=== PATIENT | male | born 1940 | race Caucasian/White ===

== ENCOUNTER 2017-12-13 16:19 | Emergency (ER) | payer MEDICARE, MEDICAID ==
[~2017-12-13] VITALS: Ht 172.7 cm; Wt 74.4 kg
--- OUTSIDE RECORDS SUMMARY | ~2017-12-13 | XMS | Clinical Summary ---
Demographics + + + | Address | [address] [place] [address] | | | [place] [address] | + + + | Home Phone | | + + + | Preferred Language | Unknown | + + + | Marital Status | Single | + + + | Scientology Affiliation | Unknown | + + + | Race | Unknown | + + + | Ethnic Group | Unknown | + + + Author + + + | Author | [facility] | | | and Angelana | + + + | Organization | [facility] | | | and Angelana | + + + | Address | Unknown | + + + | Phone | Unavailable | + + + Support + + + + + | Name | Relationship | Address | Phone | + + + + + | Shonna Syed | ECON | [address] | | | | | [place], [place] | | | | | [address] | | + + + + + Care Team Providers + +------+ + | Care Industrial Methods Consultant Name | Role | Phone | + +------+ + | Leonardo Abdi MD | PP | | + +------+ + Allergies Not on File Current Medications Not on file Active Problems Not on file Social History + +-------+ +--------+------+ | Tobacco [...] on file | | + + + Plan of Treatment + + + + + | Health Maintenance | Due Date | Last Done | Comments | + + + + + | Vaccine: | | | | | Dtap/Tdap/Td (1 - | 0 | | | | Tdap) | | | | + + + + + | Vaccine: Zoster (1 | | | | | of 2) | 1 | | | + + + + + | Vaccine: | | | | | Pneumococcal 65+ | 6 | | | | Low/Medium Risk (1 | | | | | of 2 - PCV13) | | | | + + + + + | Vaccine: Influenza | | | | | (#1) | 8 | | | + + + + + Results Not on filefrom Last 3 Months Insurance + +--------+ +--------+ +---------+ | Payer | Benefi | Subscriber | Type | Phone | Address | | | t Plan | ID | | | | | | / | | | | | | | Group | | | | | + +--------+ +--------+ +---------+ | MEDICARE | MEDICA | [id number] | Medica | [phone] | | | RE | | re | [phone] | | | | PART A | | | | | | | AND B | | | | | + +--------+ +--------+ +---------+ + +--------+ +--------+ + + | Guarantor Name | Accoun | Relation to | Date | Phone | Billing Address | | | t Type | Patient | of | | | | | | | | | | + +--------+ +--------+ + + | RK KEE | Person | Self [birth year] Home: | [address] [place] [address] | | | al/Fam | | 1941 | [phone] | [place] [address] | | | sol | | | 1970 | | + +--------+ +--------+ + +"
--- OUTSIDE RECORDS SUMMARY | ~2017-12-13 | XMS | Clinical Summary ---
Demographics + + + | Address | [address] [place] [address] | | | [place] [address] | + + + | Home Phone | | + + + | Preferred Language | Unknown | + + + | Marital Status | Single | + + + | Mormonism Affiliation | Unknown | + + + | Race | Unknown | + + + | Ethnic Group | Unknown | + + + Author + + + | Author | [facility] | | | and Angelana | + + + | Organization | [facility] | | | and Angelana [...] [place], [place] | | | | | [address] | | + + + + + Care Team Providers + +------+ + | Care Pantry Attendant Name | Role | Phone | + [...] +--------+ +---------+ | MEDICARE | MEDICA | [id number] | Medica | [phone] | | | RE | | [...] | Self | [birth year] | Home: | [address] [place] [address] | | | al/Fam | | 1941 | [phone] | [place] [address] | | | sol | | | 1970 | | + +--------+ +--------+ + +"
[~2017-12-13 16:19] MED LIST: BACLOFEN10 MG PO; GABAPENTIN100 MG PO; LIDODERM700 MG TD; MIRALAX17 GM PO; NORCO 5-325 TA1 EACH PO; NORVASC10 MG PO; NORVASC5 MG PO; TRELSTAR11.25 MG/2 IM; TYLENOL325 MG PO; VITAMIN D1000 UNI1 PO; XTANDI40 MG PO
[2017-12-13] MEDS ORDERED: LIDODERM1 EACH TD (17:38)
== END 2017-12-13 17:51 | disposition home or self-care (01) ==
LOC: ED 16:19
DX: S32.019A Unspecified fracture of first lumbar vertebra, initial encounter for closed fracture (principal); W01.198A Fall on same level from slipping, tripping and stumbling with subsequent striking against other object, initial encounter; Z79.899 Other long term (current) drug therapy; Z85.46 Personal history of malignant neoplasm of prostate
CPT/HCPCS: 72100; 99283

== ENCOUNTER 2017-12-14 11:59 | Observation (INO) | payer MEDICARE, MEDICAID ==
[~2017-12-14] VITALS: Ht 172.7 cm; Wt 74.5 kg
--- OUTSIDE RECORDS SUMMARY | ~2017-12-14 | XMS | Clinical Summary ---
Demographics + + + | Address | [address] [place] [address] | | | [place] [address] | + + + | Home Phone | | + + + | Preferred Language | Unknown | + + + | Marital Status | Single | + + + | Caodaism Affiliation | Unknown | + + + | Race | Unknown | + + + | Ethnic Group | Unknown | + + + Author + + + | Author | [facility] | | | and Angelana | + + + | Organization | [facility] | | | and Angelana [...] [place], [place] | | | | | [address] | | + + + + + Care Team Providers + +------+ + | Care Marble Finisher Name | Role | Phone | + [...] +--------+ +---------+ | MEDICARE | MEDICA | [id number] | Medica | [phone] | | | | RE | | [...] | Self | [birth year] | Home: | [address] [place] [address] | | | al/Fam | | 1941 | [phone] | [place] [address] | | | sol | | | 1970 | | + +--------+ +--------+ + +"
--- OUTSIDE RECORDS SUMMARY | ~2017-12-14 | XMS | Clinical Summary ---
Demographics + + + | Address | [address] [place] [address] | | | [place] [address] | + + + | Home Phone | | + + + | Preferred Language | Unknown | + + + | Marital Status | Single | + + + | Roman Catholic Affiliation | Unknown | + + + | Race | Unknown | + + + | Ethnic Group | Unknown | + + + Author + + + | Author | [facility] | | | and Angelana | + + + | Organization | [facility] | | | and Angelana | [...] [place], [place] | | | | | [address] | | + + + + + Care Team Providers + +------+ + | Care Coupon Clerk Name | Role | Phone | + [...] +--------+ +---------+ | MEDICARE | MEDICA | [id number] | Medica | [phone] | | | RE | | [...] | Self | [birth year] | Home: | [address] [place] [address] | | | al/Fam | | 1941 | [phone] | [place] [address] | | | sol | | | 1970 | | + +--------+ +--------+ + +"
--- OUTSIDE RECORDS SUMMARY | ~2017-12-14 | XMS | Clinical Summary ---
Demographics + + + | Address | [address] [place] [address] | | | [place] [address] | + + + | Home Phone [...] + + + | Author | [facility] | | | and Angelana | + + + | Organization | [facility] | | | and Angelana [...] [place], [place] | | | | | [address] | | + + + + + Care Team Providers + +------+ + | Care Brickmason Helper Name | Role | Phone | + [...] +--------+ +---------+ | MEDICARE | MEDICA | [id number] | Medica | [phone] | | | | RE | | [...] | Self | [birth year] | Home: | [address] [place] [address] | | | al/Fam | | 1941 | [phone] | [place] [address] | | | sol | | | 1970 | | + +--------+ +--------+ + +"
[~2017-12-14 11:59] MED LIST changes: +LIDODERM1 EACH TD
--- NOTE | 2017-12-14 15:26 | EKG ---
[facility] [address] [facility] [place], [place] [address] Signed Normal sinus rhythm Septal infarct , age undetermined Abnormal ECG No previous ECGs available Confirmed by WASHINGTON SHANE MD ([id number]) on 12/14/2017 3:26:42 PM Electronically Signed By: WASHINGTON SHANE MD 12/14/17 1526 PATIENT NAME: YAW EARL Electrocardiogram DATE OF : 40 PHYSICIAN: WASHINGTON SHANE MD REPORT #: [id number] REPORT IS CONFIDENTIAL AND NOT TO BE RELEASED WITHOUT AUTHORIZATION
--- NOTE | 2017-12-14 17:30 | NUR ---
PT ARRIVED TO UNIT VIA STRETCH FROM ER. PT ASSISTED TO BED, TOLERATED WELL, ASSESSED FOR POSITIONING AND PAIN. NEW GOWN AND ATTENDS APPLIED. SLIGHT REDDENING NOTED IN GROIN. PT PLACED ON TELE #5. NO ACUTE DISTRESS NOTED. FULL ASSESSMENT TO BE COMPLETED.
--- NOTE | 2017-12-14 17:55 | NUR ---
RN IN ROOM WITH PATIENT AT THIS TIME. THIS DISCIPLINARY HEARING OFFICER ASSISTED RN TO CHANGE PATIENT'S ATTENDS AND DRESS PATIENT IN CLEAN GOWN.
--- NOTE | 2017-12-14 18:23 | NUR ---
MED REC COMPLETE
--- NOTE | 2017-12-14 18:30 | NUR ---
PT ARRIVED TO UNIT AT 1730. A7O X3, RESPONDS APPROPRIATELY, VERBALIZATIONS CLEAR, SLIGHT ANXIETY AND FLAT AFFECT NOTED. PT ON TELE #5 AND SR NOTED, FIELD RESEARCH ASSOCIATE LESS THAN 3 SECONDS, PERIPHERAL PULSES PALPABLE +2, DENIES N/T IN EXTREMITIES, NO FACIAL DROOP, STRENGTH EQUAL BILATERALLY TO UPPER AND LOWER EXTREMITIES. RESPIRATIONS EVEN AND UNLABORED, LUNGS CLEAR THROUGHOUT ALL PRADO, NO COUGH NOTED. ABD SOFT, NONDISTENDED WITH ACTIVE BOWEL TONES X4, LAST BM 12/13/17, REGULAR DIET, DENIES NAUSEA. PT HAS DIFFICULTY WITH VOIDING AND NEEDS ASSISTANCE WITH URINAL. INTEGUMENTARY W/D/I. LAC IV SITE WNL AND SALINE LOCKED.
--- NOTE | 2017-12-14 19:47 | NUR ---
RECEIVED REPORT FROM DAY SHIFT RN. PATIENT IS RESTING IN BED. NO NEEDS NOTED. CALL LIGHT IN REACH.
--- NOTE | 2017-12-14 20:20 | NUR ---
PATIENT ASSESMENT COMPLETED. PATIENTS EVENING MEDICATIONS GIVEN PER ORDER. PATIENT COMPLAINS OF A HEADACHE. PATIENT GIVEN PRN TYLENOL PER ORDER. PATIENT REPOSITIONED IN BED. PATIENTS WATER REFILLED. PATIENT DENIES ANY FURTHER NEEDS AT THIS TIME. CALL LIGHT IN REACH.
--- NOTE | 2017-12-14 22:40 | NUR ---
PATIENT ASSISTED BY INTELLIGENCE SPECIALIST TO ROLL ONTO HIS SIDE. PATIENT DENIES ANY FURTHER NEEDS CALL LIGHT IN REACH.
--- NOTE | 2017-12-15 00:25 | NUR ---
PATIENTS URINAL EMPTIED. PATIENT REPOSITIONED. PATIENTS TELE BATTERY REPLACED WITH A CHARGED ONE. PATIENT DENIES ANY FURTHER NEEDS AT THIS TIME. CALL LIGHT IN REACH.
--- NOTE | 2017-12-15 01:45 | NUR ---
PATIENT IS RESTING IN BED WITH EYES CLSOED. BREATHING IS EVEN AND UNLABORED, RR 17. CALL LIGHT IN REACH.
--- NOTE | 2017-12-15 03:47 | NUR ---
PATIENT ALERTED STAFF THAT HE WAS AWAKE. PATIENTS VITALS TAKNE AND RECORDED. PATIENTS ATTEND CHANGED. PATIENT REPOSITIONED IN BED. PATIENT LAURO PRN TYLENOL FOR 3/10 PAIN IN HIS BACK AND COMPLAINTS OF A HEADACHE. PATIENT DENIES ANY FURTHER NEEDS CALL LIGHT IN REACH.
--- NOTE | 2017-12-15 05:19 | NUR ---
PATIENT RESTED WELL DURING THE LATER PART OF THE SHIFT. PATIENT IS ON A REGULAR DIET. PATIENT HAS AN ORDER FOR PT AND OT. PATIENT HAS GENERALIZED WAEAKNESS. PATIENT IS A 1-2 PA W/FWW BUT HAS NOT BEEN OUT OF BED THIS SHIFT. PATIENT IS SL AND IV FLUHES WELL. PATIENT USES URINAL IN BED. PATIENT IS ON TELE #5, HAS BEEN IN SR, HR IN THE 60-70. PATIENT IS AAOX3 W/A FLAT AFFECT. PATIENT USES CALL LIGHT APPROPRIATELY. PATIENT IS ABLE TO ASSIST WITH ATTEND CHANGES AND REPOSITIONING IN BED. PATIENT RECEIVED PRN TYLENOL X2 FOR PAIN IN HIS LOWER BACK AND A HEADACHE.
--- NOTE | 2017-12-15 05:56 | NUR ---
LAB IN THE ROOM. PATIENTS VITALS TAKEN WITH DEPUTY DIRECTOR OF PUBLIC WORKS AND RECORDED. PATIENT REPOSITIONED IN BED. PATIENT DENIES ANY FURTHER NEEDS AT THIS TIME. CALL LIGHT IN REACH.
--- NOTE | 2017-12-15 08:16 | NUR ---
PATIENT RESTING IN BED. PATIENT WOULD LIKE TO SLEEP A LITTLE BEFORE GETTING UP. CALL LIGHT IN REACH. RN NOTIFIED.
--- NOTE | 2017-12-15 09:00 | NUR ---
NEURO CHECK BENIGN, NO DEFICITS NOTED.
--- NOTE | 2017-12-15 09:10 | NUR ---
PT RESTING IN BED. ALERT AND ORIENTED. DENIES PAIN OR OTHER CONCERNS AT THIS TIME. LIDOCAINE PATCH REMOVED. CALL LIGHT WITHIN REACH.
--- NOTE | 2017-12-15 10:20 | NUR ---
PATIENT SITTING UP IN BED. HANDS AND FACE WASHED. ORAL CARE DONE. FRESH WATER GIVEN. PATIENT COMPLAINS ABOUT HEADACHE. RN NOTIFIED. CALL BUTTON IN REACH. NO OTHER NEEDS AT THIS TIME.
--- NOTE | 2017-12-15 12:00 | NUR ---
PT SITTING UP IN RECLINER EATING LUNCH. NEURO CHECK COMPLETED, BENIGN, NO DEFICITS NOTED. PT DENIES NEEDS OR CONCERNS AT THIS TIME. CALL LIGHT WITHIN REACH.
--- NOTE | 2017-12-15 12:30 | NUR ---
PATIENT UP TO THE BATROOM ONE PERSON ASSISTED WITH WALKER AND GATE BELT. PATIENT REFUSE SHOWER. ASSISTED PATIENT WITH BED BATH. PERICARE DONE BY PATIENT. LINENS WAS CHANGED. PATIENT BACK TO CHAIR. CALL LIGHT IN REACH. FRESH WATER. NO MORE NEEDS AT THIS TIME.
--- NOTE | 2017-12-15 14:00 | NUR ---
PT UP IN RECLINER, USES URINAL INDEPENDENTLY NEEDED. DENIES NEEDS OR CONCERNS AT THIS TIME. ASSESSMENT BENIGN. CALL LIGHT WITHIN REACH.
--- NOTE | 2017-12-15 16:15 | NUR ---
PT MEDICATED WITH PRN TYLENOL FOR C/O HEADACHE. SITTING UP IN RECLINER WITH CALL LIGHT WITHIN REACH. KARTHIK FURTHER NEEDS OR CONCERNS AT THIS TIME.
--- NOTE | 2017-12-15 19:10 | NUR ---
PT IN RECLINER WATCHING TV. CALL LIGHT WITHIN REACH.
--- NOTE | 2017-12-15 19:24 | NUR ---
REPORT RECEIVED FROM RIOS MEEHAN. PT STATES HE HAS HAD TODD AND BACK ACHES TODAY PT REPORTS CHRONIC TODD'S. PT STATES HE WOULD LIKE HIS TYLENOL AT 0000 WHEN IT IS DUE. CALL LIGHT AND H20 IN REACH AND PT DENIES FURHTER NEEDS AT THIS TIME.
--- NOTE | 2017-12-15 20:45 | NUR ---
In to administer HS medications. pt resting in chair, lidoderm patch applied to back. pt provided with fresh water and urinal emptied. call light in reach and pt denies furhter needs.
--- NOTE | 2017-12-15 22:20 | NUR ---
VITALS AND I&OS DONE AND CHARTED. HELPED HIM CHANGE HIS ATTENDS AND GOWN DUE TO SOME URINE ON IT WHEN HE WAS USING HIS URINAL. HELPED HIM TO BED FROM HIS CHAIR WITH HIS FWW. HELPED POSITION HIM WITH PILLOWS FOR COMFORT. BEDSIDE TABLE AND CALL LIGHT WITHIN REACH. PT NEEDS NOTHING ELSE AT THIS TIME.
--- NOTE | 2017-12-15 23:58 | NUR ---
pt resting in bed states he has 4/10 headache that is preventing him from getting any sleep. Tylenol administered po per pt request. urinal emptied and pt given fresh water. call light in reach.
--- NOTE | 2017-12-16 02:45 | NUR ---
PT ASSISTED UP IN BED AND ASSISTED INTO POSITION OF COMFORT WITH 2 PERSON ASSIST. PT HAS 2 TOWELS ROLLED UP INSTEAD OF PILLOW PER HIS REQUEST AND STATES HE IS COMFORTABLE. PT STATES PAIN IS TOLERABLE. ASSESSMENT COMPLETED, CALL LIGHT IN REACH. URINAL EMPTIED AND CALL LIGHT/H20 IN REACH. NEORO WAS PERFORMED WITH NO NEW DEFICITS.
--- NOTE | 2017-12-16 06:10 | NUR ---
PT RESTING SUPINE IN BED, ALERT TO DOOR BEING OPENED FOR WELLCHECK. PT STATES HE ONLY WAS BALE TO GET SOME BROKEN SLEEP OFF AND ON AND STATES HE HAS BEEN HAVING POOR SLEEP QUALITY AT HOME WELL. PT DENIES NEED FOR PAIN MEDACINE AND STATES HE FEELS COMFORTABLE. NO NEEDS VOICED. CALL LIGHT AND H20 IN REACH.
--- NOTE | 2017-12-16 06:38 | NUR ---
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 PT STILL HAS GENERALIZED WEAKNESS WITH NO NEW NEUROLOGICAL DEFACITS. 1-2PERSON ASSIST WITH FWW. PT REMAINS ON TELE #5. A/OX3, USES CALL LIGHT APPROPRIATLEY PT VOIDED QS CLEAR YELLOW URINE THIS SHIFT. LIDODERM PATCH TO SMALL OF BACK. AND PT RECEIVED 2 PO TYLENOL THIS SHIFT FOR REPORTS OF BACK ACHE AND HEADACHE.
--- NOTE | 2017-12-16 09:12 | NUR ---
PT RESTING IN BED, NO DISTRESS. PT STATES HE HAS CHRONIC BACK AND HEADACHE PAIN. PT HAD DIFFICULTY USING URINAL INDEPENDENTLY, USED WITH ASSIST. BRIEF WAS SATURATED, PROVIDED COMPLETE BED CHANGE, NEW BRIEF PLACED. PT IS GENERALLY WEAK AND NEEDED ASSIST TO ROLL IN BED. WEEDER EQUAL, ABLE TO FOLLOW COMMANDS, SMILE EQUAL, FLAT AFFECT. WILL CONTINUE TO MONITOR.
[2017-12-16] MEDS ORDERED: ASPIRIN EC81 MG PO (10:43)
--- NOTE | 2017-12-16 10:51 | NUR ---
WAS INFORMED THIS AM THAT THE PT WOULD NEED A FWW, RX GIVEN. TALKED WITH THE PT AND HE SAID TO GO AHEAD AND ORDER ONE FROM [facility]. FAXED CHART NOTES TO [facility] INCLUDING FACE SHEET, ER NOTES, H AND P, PROG NOTES, DC SUMMARY, DC PACKET, PT AND OT EVAL. RECIEVED A FAX CONFIRMATION. TALKED TO ZOFIA AT [facility] SHE STATED THEY WOULD BE ABLE TO DELIVER THE WALKER AFTER THE SCRAP YARD WORKER RETURNED FROM LUNCH.
--- NOTE | 2017-12-16 13:54 | NUR ---
PT FRIEND INQUIRED AT DISCHARGE IF PT WAS SAFE TO GO HOME TO LIVE ALONE. SPOKE WITH EMERGENCY MANAGEMENT CONSULTANT, PHYSICAL THERAPY HAS DISCHARGED/CLEARED PT TODAY. WIND TURBINE MECHANIC STATED THAT PT IS INDEPENDENT AND HAS BEEN CLEARED BY PHYSICAL THERAPY. PT IS TO FOLLOW UP WITH PHYSICIAN AND DO HOME PT IF ORDERED BY FOLLOW UP PROVIDER, RELAYED THAT INFORMATION TO PT AND FRIEND. ESCORTED PT TO CAR, PT USED WALKER TO TRANSFER. PT FRIEND STATED THAT IF PT CANNOT BE INDEPENDENT AT HOME SHE WILL CALL AN AMBULANCE AND RETURN PT TO THIS HOSPITAL SHE CANNOT LIFT HIM AND HAS BACK TROUBLE. REPORTED THIS INFORMATION TO CHARGE NURSE AND WIND TURBINE MECHANIC. PT WAS ABLE TO AMBULATE AND TRANSFER INDEPENDENTLY.
== END 2017-12-16 13:40 | disposition home or self-care (01) ==
LOC: ED 11:59 → MS 12:00
PROVIDERS: ADMIT Internal Medicine
DX: G45.9 Transient cerebral ischemic attack, unspecified (principal); C61 Malignant neoplasm of prostate; C79.9 Secondary malignant neoplasm of unspecified site; R29.810 Facial weakness; G81.94 Hemiplegia, unspecified affecting left nondominant side; S32.019A Unspecified fracture of first lumbar vertebra, initial encounter for closed fracture; W19.XXXA Unspecified fall, initial encounter; Z90.49 Acquired absence of other specified parts of digestive tract; Z90.79 Acquired absence of other genital organ(s); Z79.899 Other long term (current) drug therapy
CPT/HCPCS: 36415; 70450; 71045; 72131; 80048; 80053; 81001; 85025; 93005; 93010; 93880; 97116; 97163; 97165; 97530; 99285; G0378; G8978; G8979; G8980

== ENCOUNTER 2017-12-17 14:47 | Emergency (ER) | payer MEDICARE, MEDICAID ==
[~2017-12-17] VITALS: Ht 172.7 cm; Wt 74.5 kg
[~2017-12-17 14:47] MED LIST changes: +ASPIRIN EC81 MG PO
== END 2017-12-17 20:35 ==
LOC: ED 14:47
DX: S32.029A Unspecified fracture of second lumbar vertebra, initial encounter for closed fracture (principal); Z79.899 Other long term (current) drug therapy; X58.XXXA Exposure to other specified factors, initial encounter
CPT/HCPCS: 80053; 81001; 85025; 87088; 96360; 99285; J7030

== ENCOUNTER 2019-06-14 18:42 | Emergency (ER) | payer MEDICARE, OTHER ==
[~2019-06-14] VITALS: Ht 172.7 cm; Wt 77.6 kg
--- OUTSIDE RECORDS SUMMARY | 2019-06-14 18:46 | XMS ---
PreManage Notification: YAW EARL Security General Clerk Events No recent Security Events currently on file CRITERIA MET - Group Notification - [facility] - Has Care Guidelines CARE PROVIDERS LEO DISLA Nurse Practitioner: Family 12/15/2017-Current PHONE: [phone] Tito Luna Restrike Hammer Operator/Travel Guide 05/20/2019-Current PHONE: [phone] Tito Luna Primary Care 05/20/2019-Current PHONE: [phone] [place] has no Care Guidelines for this patient. Care History Medical/Surgical 12/15/2017 [facility] - Patient is currently established with [facility]. If patient is seen in the ED during business hours. Please contact CHWs at [facility]. Care Recommendation: This patient has had 5 or more Emergency Department visits in the last 12 months.\T\nbsp; Patient requires education on the scope and purpose of the ED as an acute care provider not a Primary Care Provider and should not be utilized for chronic conditions.\T\nbsp; These are guidelines and the provider should exercise clinical judgment when providing care. E.D. VISIT COUNT (12 MO.) 1 BERNADETTE Carvajal TOTAL 1 NOTE: Visits indicate total known visits. ED/UCC VISIT TRACKING (12 MO.) 06/14/2019 18:42 [facility] [place] TYPE: Emergency COMPLAINT: - BACK PAIN INPATIENT VISIT TRACKING (12 MO.) No inpatient visits to display in this time frame [email or web address]
== END 2019-06-14 21:39 | disposition home or self-care (01) ==
LOC: ED 18:42
DX: C79.51 Secondary malignant neoplasm of bone (principal); C61 Malignant neoplasm of prostate; Z79.899 Other long term (current) drug therapy
CPT/HCPCS: 80053; 81001; 85025; 99283

== ENCOUNTER 2019-08-01 12:28 | Emergency (ER) | payer MEDICARE, OTHER ==
[~2019-08-01] VITALS: Ht 172.7 cm; Wt 77.6 kg
--- OUTSIDE RECORDS SUMMARY | 2019-08-01 12:30 | XMS ---
PreManage Notification: YAW EARL Security Manager Loss Prevention Events No recent Security Events currently on file CRITERIA MET - Group Notification - [facility] - Has Care Guidelines CARE PROVIDERS LEO DISLA Nurse Practitioner: Family 12/15/2017-Current PHONE: [phone] Alisha Cain Door Serviceman/Broach Trouble Shooter 05/20/2019-Current PHONE: [phone] [place] has no Care Guidelines for this patient. Care History Medical/Surgical 06/15/2019 [facility] Spoke with patient regarding use of emergency room and advised of walk in clinic.\T\nbsp; Patient stated he has used the ER and the walk in clinic\T\ nbsp;before and knows how the system works.\T\nbsp; He has appointment with Dr. Arnold next week. 12/15/2017 [facility] - Patient is currently established with [facility]. If patient is seen in the ED during business hours. Please contact CHWs at [facility]. Care Recommendation: If this patient has had 5 or more Emergency Department visits in the last 12 months.\T\nbsp; Patient will require education on the scope and purpose of the ED as an acute care provider not a Primary Care Provider and should not be utilized for chronic conditions.\T\nbsp; These are guidelines and the provider should exercise clinical judgment when providing care. E.D. VISIT COUNT (12 MO.) 2 BERNADETTE Carvajal TOTAL 2 NOTE: Visits indicate total known visits. ED/UCC VISIT TRACKING (12 MO.) 08/01/2019 12:28 [facility] [place] TYPE: Emergency COMPLAINT: - FALL 06/14/2019 18:42 [facility] [place] TYPE: Emergency COMPLAINT: - BACK PAIN DIAGNOSES: - Secondary malignant neoplasm of bone - Diarrhea, unspecified - Other senior care (current) drug therapy - Malignant neoplasm of prostate - Low back pain INPATIENT VISIT TRACKING (12 MO.) No inpatient visits to display in this time frame [email or web address]
[2019-08-01] MEDS ORDERED: PREDNISONE5 MG PO (12:51)
[2019-08-01] MEDS ORDERED: ABIRATERONE AC250 MG PO (12:51)
[2019-08-01] MEDS ORDERED: AMLODIPINE BESYL5 MG PO (12:56)
== END 2019-08-01 15:40 | disposition home or self-care (01) ==
LOC: ED 12:28
DX: C61 Malignant neoplasm of prostate (principal); I10 Essential (primary) hypertension; Z79.899 Other long term (current) drug therapy
CPT/HCPCS: 80053; 81001; 83735; 85025; 99284

== ENCOUNTER 2019-10-08 07:45 | Emergency (ER) | payer MEDICARE, OTHER ==
[~2019-10-08] VITALS: Ht 172.7 cm; Wt 79.4 kg
[~2019-10-08 07:45] MED LIST changes: +ABIRATERONE AC250 MG PO; +AMLODIPINE BESYL5 MG PO; +PREDNISONE5 MG PO
--- OUTSIDE RECORDS SUMMARY | 2019-10-08 07:48 | XMS ---
PreManage Notification: YAW EARL Security Dean Of Faculty Events No recent Security Events currently on file CRITERIA MET - Group Notification - [facility] - Has Care Guidelines CARE PROVIDERS JUAN DISLA Nurse Practitioner: Family 12/15/2017-Current PHONE: [phone] Alisha Cain Quirk Sander/Site Manager 05/20/2019-Current PHONE: [phone] [place] has no Care Guidelines for this patient. Care History Medical/Surgical 08/02/2019 [facility] Patient has scheduled follow up with Juan Disla on 08/11/2019. 06/15/2019 [facility] Spoke with patient regarding use of emergency room and advised of walk in clinic.\T\nbsp; Patient stated he has used the ER and the walk in clinic\T\ nbsp;before and knows how the system works.\T\nbsp; He has appointment with Dr. Arnold next week. 12/15/2017 [facility] - Patient is currently established with [facility]. If patient is seen in the ED during business hours. Please contact CHWs at [facility]. Care Recommendation: If this patient has had [...] providing care. E.D. VISIT COUNT (12 MO.) 3 BERNADETTE Carvajal TOTAL 3 NOTE: Visits indicate total known visits. ED/C VISIT TRACKING (12 MO.) 2019 07:45 [facility] [place] TYPE: Emergency COMPLAINT: - FALL, KNEE PAIN 08/01/2019 12:28 [facility] [place] TYPE: Emergency COMPLAINT: - FALL DIAGNOSES: - Essential (primary) hypertension - Other custodial (current) drug therapy - Weakness - Malignant neoplasm of prostate 06/14/2019 18:42 [facility] [place] TYPE: Emergency COMPLAINT: - BACK PAIN DIAGNOSES: - Secondary malignant neoplasm of bone - Diarrhea, unspecified - Other buttermaker continuous churn (current) drug therapy - Malignant neoplasm of prostate - Low back pain INPATIENT VISIT TRACKING (12 MO.) No inpatient visits to display in this time frame [email or web address]
== END 2019-10-08 10:35 | disposition home or self-care (01) ==
LOC: ED 07:45
DX: S80.211A Abrasion, right knee, initial encounter (principal); I10 Essential (primary) hypertension; Z79.899 Other long term (current) drug therapy; W06.XXXA Fall from bed, initial encounter
CPT/HCPCS: 73560; 99283-25

== ENCOUNTER 2019-10-11 04:07 | Emergency (ER) | payer MEDICARE, OTHER ==
[~2019-10-11] VITALS: Ht 172.7 cm; Wt 77.1 kg
--- OUTSIDE RECORDS SUMMARY | 2019-10-11 04:10 | XMS ---
PreManage Notification: YAW EARL Security Seo Consultant Events No recent Security Events currently on file CRITERIA MET - Group Notification - [facility] - Has Care Guidelines - [facility] - 2 Visits in 30 Days CARE PROVIDERS JUAN DISLA Nurse Practitioner: Family 12/15/2017-Current PHONE: [phone] Alisha Cain Emergency Department/Jde Developer 05/20/2019-Current PHONE: [phone] [place] has no Care Guidelines for this patient. Care History Medical/Surgical 10/09/[address] [facility] Patient stated that he had fallen and could not get up.\T\nbsp; It scared him to the point of having to call EMS to get him to the ED.\T\nbsp; He will consider calling the Clinic to book a follow up with Juan Disla if need be. 08/02/[address] [facility] Patient has scheduled follow up with Juan Disla on 08/11/2019. 06/15/[address] [facility] Spoke with patient regarding use of emergency room and advised of walk in clinic.\T\nbsp; Patient stated he has used the ER and the walk in clinic\T\ nbsp;before and knows how the system works.\T\nbsp; He has appointment with Dr. Arnold next week. Jelani VISIT COUNT (12 MO.) 4 BERNADETTE Carvajal TOTAL 4 NOTE: Visits indicate total known visits. ED/UCC VISIT TRACKING (12 MO.) 10/11/2019 04:08 [facility] [place] TYPE: Emergency COMPLAINT: - FALL 2019 07:45 BERNADETTE Augustony Laci [facility] [place] TYPE: Emergency COMPLAINT: - FALL, KNEE PAIN 08/01/2019 12:28 [facility] [place] TYPE: Emergency COMPLAINT: - FALL DIAGNOSES: - Essential (primary) hypertension - Other custodial (current) drug therapy - Weakness - Malignant neoplasm of prostate 06/14/2019 18:42 BERNADETTE Augustony Laci [facility] [place] TYPE: Emergency COMPLAINT: - BACK PAIN DIAGNOSES: - Secondary malignant neoplasm of bone - Diarrhea, unspecified - Other custodial (current) drug therapy - Malignant neoplasm of prostate - Low back pain INPATIENT VISIT TRACKING (12 MO.) No inpatient visits to display in this time frame [email or web address]
== END 2019-10-11 05:47 | disposition home or self-care (01) ==
LOC: ED 04:07
DX: Z04.3 Encounter for examination and observation following other accident (principal); I10 Essential (primary) hypertension; Z79.899 Other long term (current) drug therapy; W18.30XA Fall on same level, unspecified, initial encounter
CPT/HCPCS: 80053; 81001; 85025

== ENCOUNTER 2019-10-31 12:42 | Emergency (ER) | payer MEDICARE, OTHER ==
[~2019-10-31] VITALS: Ht 172.7 cm; Wt 77.1 kg
--- OUTSIDE RECORDS SUMMARY | ~2019-10-31 | XMS | Encounter Summary ---
Demographics + + + | Address | [address] | | | [place] [address] | + + + | Home Phone | | + + + | Preferred Language | Unknown | + + + | Marital Status | Single | + + + | Yazdanism Affiliation | Unknown | + + + | Race | Unknown | + + + | Ethnic Group | Unknown | + + + Author + + + | Author | [facility] | | | and [place] | + + + | Organization | [facility] | | | and [place] | + + + | Address | Unknown | + + + | Phone | Unavailable | + + + Support + + + + + | Name | Relationship | Address | Phone | + + + + + | Shonna Ivannell | ECON | [address] | | | | | [place] | | | | | [address] | | + + + + + Care Team Providers + +------+ + | Care Procurement Accountant Name | Role | Phone | + +------+ + | Unknown, Doctor | PCP | | + +------+ + Reason for Visit + +--------+ + | Reason | Onset | Comments | | | Date | | + +--------+ + | Medication Refill | 01/02/ | | | | 2015 | | + +--------+ + Encounter Details +--------+--------+ + + + | Date | Type | Department | Care Team | Description | +--------+--------+ + + + | 01/02/ | Refill | [facility] | Rashard Rivera, | Medication Refill | | 2015 | | [facility] | [address] | | | | | [address]OG[address] CL[address] | [facility] [place], | | | | | [address] | [place] [address] | | | | | [place] [address] | [phone] | | | | | [phone] | | | +--------+--------+ + + + Social History + +-------+ +--------+------+ | Tobacco Use | Types | Packs/Day | Years | Date | | | | | Used | | + +-------+ +--------+------+ | Never Assessed | | | | | + +-------+ +--------+------+ + + + | Sex Assigned at | Date Recorded | | | | + + + | Not on file | | + + + documented as of this encounter Plan of Treatment Not on filedocumented as of this encounter Visit Diagnoses Not on filedocumented in this encounter"
--- OUTSIDE RECORDS SUMMARY | ~2019-10-31 | XMS | Clinical Summary ---
Demographics + + + | Address | [address] | | | [place] [address] | + + + | Home Phone | | + + + | Preferred Language | Unknown | + + + | Marital Status | Single | + + + | Spiritism Affiliation | Unknown | + + + | Race | Unknown | + + + | Ethnic Group | Unknown | + + + Author + + + | Author | [facility] | | | and [place] | + + + | Organization | [facility] | | | and [place] | + + + | Address | Unknown | + + + | Phone | Unavailable | + + + Support + + + + + | Name | Relationship | Address | Phone | + + + + + | Shonna Syed | ECON | [address] | | | | | [place] | | | | | [address] | | + + + + + Care Team Providers + +------+ + | Care Lining Cutter Name | Role | Phone | + +------+ + | Juan Verde NP | PCP | | + +------+ + Allergies No Known Allergies Medications + + + +---------+------+------+-------+ | Medication | Sig | Dispensed | Refills | Star | End | Statu | | | | | | t | Date | s | | | | | | Date | | | + + + +---------+------+------+-------+ | RA ASPIRIN EC 81 | Take 81 mg by mouth | | 0 | 08/3 | | Activ | | MG EC tablet | Daily. | | | 0/20 | | e | | | | | | 18 | | | + + + +---------+------+------+-------+ | amLODIPine | Take 5 mg by mouth | | 0 | 04/1 | | Activ | | (NORVASC) 5 mg | Daily. | | | 8/20 | | e | | tablet | | | | 19 | | | + + + +---------+------+------+-------+ | | Take 1-2 tablets by | 30 | 0 | 06/0 | | Activ | | HYDROcodone-acetamin | mouth every 4 hours | tablet | | 6/20 | | e | | ophen (NORCO) 5-325 | as needed for Pain. | | | 19 | | | | mg per tablet | | | | | | | + + + +---------+------+------+-------+ Active Problems Not on file Social History + +-------+ +--------+------+ | Tobacco Use | Types | Packs/Day | Years | Date | | | | | Used | | + +-------+ +--------+------+ | Never Smoker | | | | | + +-------+ +--------+------+ + +---+---+---+ | Smokeless Tobacco: | | | | | Never Used | | | | + +---+---+---+ + + +---------+ + | Alcohol Use | Drinks/Week | oz/Week | Comments | + + +---------+ + | Not Currently | | | | + + +---------+ + + + + | Sex Assigned at | Date Recorded | | | | + + + | Not on file | | + + + Last Filed Vital Signs + + + + + | Vital Sign | Reading | Time Taken | Comments | + + + + + | Blood Pressure | 147/74 | 09/22/2018 7:45 AM | | | | | PDT | | + + + + + | Pulse | 70 | 09/22/2018 7:45 AM | | | | | PDT | | + + + + + | Temperature | 35.8 C (96.4 F) | 09/22/2018 7:45 AM | | | | | PDT | | + + + + + | Respiratory Rate | 16 | 09/22/2018 7:45 AM | | | | | PDT | | + + + + + | Oxygen Saturation | 95% | 09/22/2018 7:45 AM | | | | | PDT | | + + + + + | Inhaled Oxygen | - | - | | | Concentration | | | | + + + + + | Weight | 79.2 kg (174 lb 9.7 | 09/21/2018 7:04 AM | | | | oz) | PDT | | + + + + + | Height | 170.2 cm (5' 7") | 09/21/2018 7:04 AM | | | | | PDT | | + + + + + | Body Mass Index | 27.35 | 09/21/2018 7:04 AM | | | | | PDT | | + + + + + Plan of Treatment + + + + + | Health Maintenance | Due Date | Last | Comments | | | | Done | | + + + + + | Vaccine: | | | | | Dtap/Tdap/Td (1 - | 0 | | | | Tdap) | | | | + + + + + | Vaccine: Zoster (1 | | | | | of 2) | 1 | | | + + + + + | Vaccine: | | | | | Pneumococcal 65+ (1 | 6 | | | | of 1 - PPSV23) | | | | + + + + + | Adult Annual | | | | | Wellness Visit | 0 | | | + + + + + | Vaccine: Influenza | | 01/22/20 | | | (#1) | 0 | 17 | | + + + + + Results Not on filefrom Last 3 Months Insurance + +--------+ +--------+ +---------+--------+ | Payer | Benefi | Subscriber | Effect | Phone | Address | Type | | | t Plan | ID | stephanie | | | | | | / | | Dates | | | | | | Group | | | | | | + +--------+ +--------+ +---------+--------+ | MEDICARE | MEDICA | [id number] | 09/18/19 | [phone] | | Medica | | | RE | | 06-Pre | 5 | | re | | | PART A | | sent | | | | | | AND B | | | | | | + +--------+ +--------+ +---------+--------+ | [employer]AN | MODA | [id number] | 09/21/19 | [phone] | | Medica | | MEDICAID HMO | HEALTH | | 19-Pre | 1 | | id | | | MDCD | | sent | | | | | | HMO [place] | | | | | | + +--------+ +--------+ +---------+--------+ + +--------+ +--------+ + + | Guarantor Name | Accoun | Relation to | Date | Phone | Billing Address | | | t Type | Patient | of | | | | | | | | | | + +--------+ +--------+ + + | Rk Kee | Person | Self | [birth year] | [address] | | | al/[place] | | 1941 | [phone] | [address] | | | sol | | | [address] (Home) | [place] [address] | + +--------+ +--------+ + + Advance Directives + + + + + | Type | Date Recorded | Patient | Explanation | | | | Commissions Analyst | | + + + + + | Power of | | | | | Hydroelectric Plant Electrical Engineer | | | | + + + + + | Advance | 09/21/2018 6:49 | | | | Directive | AM | | | + + + + + + + + + + | Code Status | Date | Date | Comments | | | Activated | Inactivated | | + + + + + | Full Code | 09/21/2018 | 09/22/2018 | | | | 11:42 AM | 1:17 PM | | + + + + +
--- OUTSIDE RECORDS SUMMARY | ~2019-10-31 | XMS | Encounter Summary ---
Demographics + + + | Address | [address] | | | [place] [address] | + + + | Home Phone | | + + + | Preferred Language | Unknown | + + + | Marital Status | Single | + + + | Restorationism Affiliation | Unknown | + + + | Race | Unknown | + + + | Ethnic Group | Unknown | + + + Author + + + | Author | [facility] | | | and [place] | + + + | Organization | [facility] | | | [...] [place] | | | | | [address] | | + + + + + Care Team Providers + +------+ + | Care Cast Iron Dipper Name | Role | Phone | + [...] + + | 07/07/ | Refill | [facility] | [place], | Medication Refill | | 2016 | | [facility] | Maximus Julian MD [address] | | | | | [address] CL[address] | [facility] | | | | | [facility] | [place] [address] | | | | | [place] [address] | [phone] | | | | | [phone] | | | +--------+--------+ + + + [...]
--- OUTSIDE RECORDS SUMMARY | ~2019-10-31 | XMS | Encounter Summary ---
Demographics + + + | Address | [address] | | | [place] [address] | + + + | Home Phone | | + + + | Preferred Language | Unknown | + + + | Marital Status | Single | + + + | Yarsanism Affiliation | Unknown | + + + | Race | Unknown | + + + | Ethnic Group | Unknown | + + + Author + + + | Author | [facility] | | | and [place] | + + + | Organization | [facility] | | | [...] [place] | | | | | [address] | | + + + + + Care Team Providers + +------+ + | Care Hot Top Liner Name | Role | Phone | + [...] | | | [address] | [place] [address] | | | | | [place] [address] | | | | | | [phone] | | | +--------+ + + + [...]
--- OUTSIDE RECORDS SUMMARY | ~2019-10-31 | XMS | Encounter Summary ---
Demographics + + + | Address | [address] | | | [place] [address] | + + + | Home Phone | | + + + | Preferred Language | Unknown | + + + | Marital Status | Single | + + + | Adventism Affiliation | Unknown | + + + [...] [place] | | | | | [address] | | + + + + + Care Team Providers + +------+ + | Care Addiction Psychiatrist Name | Role | Phone | + [...] | | | [address] | [place] [address] | | | | | [place] [address] | | | | | | [phone] | | | +--------+ + + + [...]
--- OUTSIDE RECORDS SUMMARY | ~2019-10-31 | XMS | Encounter Summary ---
Demographics + + + | Address | [address] | | | [place] [address] | + + + | Home Phone | | + + + | Preferred Language | Unknown | + + + | Marital Status | Single | + + + | Faith Affiliation | Unknown | + + + | Race | Unknown | + + + | Ethnic Group | Unknown | + + + Author + + + | Author | [facility] | | | and [place] | + + + | Organization | [facility] | | | [...] [place] | | | | | [address] | | + + + + + Care Team Providers + +------+ + | Care Quality Control Inspector Name | Role | Phone | + [...] | | | | | | | OR EXC | | | | | | | PAROTD,LAT | | | | | | | LOBE,DISSECT | | | | | | | 5TH NERV | | | | | | | OR EXC SKIN | | | | | [...] | | | | | | right muslim | | | | | | | lesion | | | +--------+--------+ + + + + Encounter Details +--------+ + + + + | Date | Type | Department | Care Team | Description | +--------+ + + + + | 06/05/ | Hospital | [facility] | Wesley Gruber Sigrid, | 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 [...] Gruber MD - 09/21/2018 10:[address] [facility] [address] [facility] [address] OPERATIVE REPORT WESLEY GRUBER MD Patient: RK EARL Admitting: WESLEY Matta ALLYN MR #: [id number] LOC: PT TYPE: Adm Date: 09/21/2018 : 1940 DATE: 09/21/2018 PREOPERATIVE DIAGNOSES: 1. Right parotid mass. 2. Right muslim skin lesion. POSTOPERATIVE DIAGNOSES: 1. Right parotid mass. 2. Right muslim skin lesion. PROCEDURE: 1. Right superficial parotidectomy with facial nerve dissection. 2. Wide excision of a right facial lesion. SURGEON: Wesley Gruber MD RAMP SERVICE MAN: Gabriel Ortiz MD. ANESTHESIA: General orotracheal, Jimy [...] have a pigmented lesion on the right muslim, measures about 15 mm, very suspicious for [...] place with a 3-0 silk. The right muslim lesion was then addressed. It was a [...] then awakened, extubated and transported to the [facility] room in good condition. COMPLICATIONS: None. BLOOD LOSS: About 50 mL. SPECIMEN: To pathology: 1. Right parotid superficial lobe. 2. Right muslim lesion. DRAIN: Flat Julian. WESLEY GRUBER MD Dictated by WESLEY GRUBER MD 09/21/2018 10:37:29 Transcribed on 09/21/2018 13:04:49 by in job# [id number] Confirmation #: [id number] cc: ELENA ABDI MD rief Op Note - Wesley Gruber MD - 09/21/2018 10:25 AM PDTFormatting of this note mo ht be different from the original. BRIEF OPERATIVE NOTE [facility] Pt. Name/Age/: Rk Bourne y.o. 1940 Med. Record Number: [id number] Date of admission: 09/21/2018 Date of Operation/Procedure: 09/21/2018 Preoperative Diagnosis: * No pre-op diagnosis entered * Postoperative Diagnosis: * Neck mass [R22.1] Surgeon: Wesley Gruber MD Museum Guide: None Anesthesia Provider(s): Anesthesiologist: Jimy Viramontes MD Anesthesia Type: General Procedure(s): Right superficial parotidectomy with facial nerve dissection, excision right muslim lesion Operative Findings: Wound Closure: Primary closure [...] MD 09/21 0930 Pathology B : Right muslim lesion Tissue SPECIMEN TO PATHOLOGY Wesley Gruber [...] Wesley Gruber MD - 09/21/2018 8:[facility] INTERIM HISTORY AND [...] signed by: Wesley Gruber, 09/21/2018 8:12 [facility] documented in this e ncounter Plan [...] A RIGHT PAROTID GLAND SPECIMEN(S): B RIGHT JEW | [place] [facility] | | SPECIMEN SOURCE: A. RIGHT PAROTID GLAND B. RIGHT JEW CLINICAL | INCYTE | | HISTORY: R22.1 (neck mass). Right superficial parotidectomy with | | | facial nerve dissection, excision right muslim mass. FINAL | | | PATHOLOGIC DIAGNOSIS: A. 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 - Focal chronic stromal | | | inflammation. - Incidental reactive lymphoid tissue (lymph nodes). | | | B. Skin, right muslim, excision: - Malignant melanoma, arising | | | in melanoma in situ. - Procedure: Excision. - | | | Tumor site: Right muslim. - Clinical size: Not available. | | [...] on 09-23-18 at 15:40. As part of [facility]' | | | Quality Improvement Program, this case was reviewed by another member | | | of our pathology staff. JVR:[facility]:C1NR MICROSCOPIC | | | EXAMINATION: Histologic [...] concern, | | | supporting the diagnosis. JVR:[facility] GROSS DESCRIPTION: Two | | | [...] | | | discrete lesions are identified. White Metal Caster sections are | | | submitted as follows: (A1) Lesion to blue inked resection margin | | | (A2) Lesion to uninvolved parenchyma (A3) Lesion (A4-A6) | | | Uninvolved parenchyma B. The specimen, labeled "DB, right muslim | | | lesion," is received in [...] performance | | | characteristics determined by [facility]. It has not been | | | cleared or approved by the U.S. Food and Drug Administration. The | | | FDA has determined that such clearance or approval is not necessary. | | | This test is used for clinical purposes. It should not be regarded | | | as investigational or for research. [facility] is certified | | | under the Clinical Laboratory Improvement Amendments of 1988 (CLIA) | | | as qualified to perform high complexity clinical laboratory testing. | | | PERFORMING LABORATORY: The technical component was performed by | | | [facility], [address] [place] [address] (Medical | | | Director: Bella Mendoza MD; CLIA# [id number]). Professional | | | interpretation was performed by [facility], [place] | | | [facility], [address] [place] [address] | | | [id number] (Setter Out: Ivan Velazquez M.D.). Diagnostician: | | | [...] | | | | | | use Cecilton 10/325 if ordered. If | | | [...] | | | | | | | [id number] use of at least | | | [...]
--- OUTSIDE RECORDS SUMMARY | ~2019-10-31 | XMS | Encounter Summary ---
Demographics + + + | Address | [address] | | | [place] [address] | + + + | Home Phone | | + + + | Preferred Language | Unknown | + + + | Marital Status | Single | + + + | Holiness Affiliation | Unknown | + + + | Race | Unknown | + + + | Ethnic Group | Unknown | + + + Author + + + | Author | [facility] | | | and [place] | + + + | Organization | [facility] | | | [...] [place] | | | | | [address] | | + + + + + Care Team Providers + +------+ + | Care Watch Dial Maker Name | Role | Phone | [...] | | | | | | | TN EXC | | | | | | | PAROTD,LAT | | | | | | | LOBE,DISSECT | | | | | | | 5TH NERV | | | | | | | TN EXC SKIN | | | | | [...] | | | | | | right baptist | | | | | | | [...] | | | | | [address] | [place] | | | | | [place] | [address] | | | | | [address] | | | | | | [phone] | | | +--------+ + + + [...] excision | | | | | right baptist lesion | | | | | (Right [...] +----+---+ + + | | 0 | Aiken | | | | 8 | 43-degrees | | | | 5 | | | | | 1 | | | +----+---+ + + | | 0 | First | | | | 8 | Inc/Proc St | | | | 5 | | | | | 3 | | | +----+---+ + + | | 1 | Aiken off | | | | 0 | [...] 09/22/18929 by | | carol | Forearm; afpx-lic-buiund catheter | Meron Bryan RN | Radha [...] EVALUATION Rk Kee 77 y.o. male 1940 [id number] Procedure(s) Right superficial parotidectomy with facial nerve dissection, excision right baptist lesion (Right Neck) Cooperates? Yes Mental Status [...] signed by Jimy Viramontes MD 09/21/2018 14:14 [facility] signed by Jimy Viramontes MD at 2018 [...] EVALUATION Rk Kee 77 y.o. male 1940 [id number] Procedure(s): Right superficial parotidectomy with facial nerve dissection, excision right baptist lesion (Right Neck) Medical,anesthesia, drug, allergy histories [...] | Procedure Note | + + | Jimy Viramontes MD - 09/21/2018 8:54 AM PDT [...]
--- OUTSIDE RECORDS SUMMARY | ~2019-10-31 | XMS | Encounter Summary ---
Demographics + + + | Address | [address] | | | [place] [address] | + + + | Home Phone | | + + + | Preferred Language | Unknown | + + + | Marital Status | Single | + + + | Anabaptist Affiliation | Unknown | + + + | Race | Unknown | + + + | Ethnic Group | Unknown | + + + Author + + + | Author | [facility] | | | and [place] | + + + | Organization | [facility] | | | [...] [place] | | | | | [id number] | | + + + + + Care Team Providers + +------+ + | Care Vp Packaging Name | Role | Phone | + [...] | | | | | | | [place] EXC | | | | | | | PAROTD,LAT | | | | | | | LOBE,DISSECT | | | | | | | 5TH NERV | | | | | | | [place] EXC SKIN | | | | | [...] | | | | | | right baptism | | | | | | | [...] with | | | | [address] | [address] [place], | facial nerve | | | | [place], [place] | [place] [address] | dissection, excision | | | | [id number] | [phone] | right baptism lesion | | | | [phone] | | | +--------+---------+ + + + [...] has mild/mod pain to surgical site, prn [place] 1 tab given w/ good relief noted. [...] Gruber MD - 09/21/2018 10:37 AM PDT [facility] [address] [facility] [id number] OPERATIVE REPORT WESLEY GRUBER MD Patient: RK EARL Admitting: WESLEY Matta ALLYN MR #: [id number] LOC: PT TYPE: Adm Date: 09/21/2018 : 1940 DATE: 09/21/2018 PREOPERATIVE DIAGNOSES: 1. Right parotid mass. 2. Right baptism skin lesion. POSTOPERATIVE DIAGNOSES: 1. Right parotid mass. 2. Right baptism skin lesion. PROCEDURE: 1. Right superficial parotidectomy with facial nerve dissection. 2. Wide excision of a right facial lesion. SURGEON: Wesley Gruber MD INDEPENDENT LIVING ADVISOR: Gabriel Ortiz MD. ANESTHESIA: General orotracheal, Jimy [...] have a pigmented lesion on the right baptism, measures about 15 mm, very suspicious for [...] place with a 3-0 silk. The right baptism lesion was then addressed. It was a [...] then awakened, extubated and transported to the [facility] room in good condition. COMPLICATIONS: None. BLOOD LOSS: About 50 mL. SPECIMEN: To pathology: 1. Right parotid superficial lobe. 2. Right baptism lesion. DRAIN: Flat Julian. WESLEY GRUBER MD Dictated by WESLEY GRUBER MD 09/21/2018 10:37:29 Transcribed on 09/21/2018 13:04:49 by in job# [id number] Confirmation #: [id number] cc: ELENA ABDI MD rief Op Note - Wesley Gruber MD - 09/21/2018 10:25 AM PDTFormatting of this note mo ht be different from the original. BRIEF OPERATIVE NOTE [facility] Pt. Name/Age/: Rk Bour[age] y.o. 1940 Med. Record Number: [id number] Date of admission: 09/21/2018 Date of Operation/Procedure: 09/21/2018 Preoperative Diagnosis: * No pre-op diagnosis entered * Postoperative Diagnosis: * Neck mass [R22.1] Surgeon: Wesley Gruber MD Logging Engineer: None Anesthesia Provider(s): Anesthesiologist: Jimy Viramontes MD Anesthesia Type: General Procedure(s): Right superficial parotidectomy with facial nerve dissection, excision right baptism lesion Operative Findings: Wound Closure: Primary closure [...] MD 09/21 0930 Pathology B : Right baptism lesion Tissue SPECIMEN TO PATHOLOGY Wesley Gruber [...] Wesley Gruber MD - 09/21/2018 8:12 AM [facility] [...] signed by: Wesley Gruber, 09/21/2018 8:12 [facility] documented in this e ncounter Plan of [...] A RIGHT PAROTID GLAND SPECIMEN(S): B RIGHT MORMONISM | [place] [facility] | | SPECIMEN SOURCE: A. RIGHT PAROTID GLAND B. RIGHT MORMONISM CLINICAL | INCYTE | | HISTORY: R22.1 (neck mass). Right superficial parotidectomy with | | | facial nerve dissection, excision right baptism mass. FINAL | | | PATHOLOGIC DIAGNOSIS: A. 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 - Focal chronic stromal | | | inflammation. - Incidental reactive lymphoid tissue (lymph nodes). | | | B. Skin, right baptism, excision: - Malignant melanoma, arising | | | in melanoma in situ. - Procedure: Excision. - | | | Tumor site: Right baptism. - Clinical size: Not available. | | [...] on 09-23-18 at 15:40. As part of [employer]' | | | Quality Improvement Program, this case was reviewed by another member | | | of our pathology staff. JVR:[facility]:C1NR MICROSCOPIC | | | EXAMINATION: Histologic [...] concern, | | | supporting the diagnosis. JVR:[facility] GROSS DESCRIPTION: Two | | | [...] | | | discrete lesions are identified. Tab Cutting Machine Operator sections are | | | submitted as follows: (A1) Lesion to blue inked resection margin | | | (A2) Lesion to uninvolved parenchyma (A3) Lesion (A4-A6) | | | Uninvolved parenchyma B. The specimen, labeled "DB, right baptism | | | lesion," is received in [...] performance | | | characteristics determined by [employer]. It has not been | | | cleared or approved by the U.S. Food and Drug Administration. The | | | FDA has determined that such clearance or approval is not necessary. | | | This test is used for clinical purposes. It should not be regarded | | | as investigational or for research. [employer] is certified | | | under the Clinical Laboratory Improvement Amendments of 1988 (CLIA) | | | as qualified to perform high complexity clinical laboratory testing. | | | PERFORMING LABORATORY: The technical component was performed by | | | [employer], [address] [place] [id number] (Medical | | | Director: Bella Mendoza MD; CLIA# [id number]). Professional | | | interpretation was performed by [employer] [place] | | | [facility], [address] [place] [address] | | | [id number] (Resort Desk Clerk: Ivan Velazquez M.D.). Diagnostician: | | | [...] | | | | | | use [place] 10/325 if ordered. If | | | [...] | | | | | | | [id number]-sltth use of at least | | | [...]
--- OUTSIDE RECORDS SUMMARY | 2019-10-31 12:46 | XMS ---
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 Care History Medical/Surgical 10/09/2019 [facility] Patient stated that he had fallen and could not get up.\T\nbsp; It scared him to the point of having to call EMS to get him to the ED.\T\nbsp; He will consider calling the Clinic to book a follow up with Juan Disla if need be. 08/02/2019 [facility] Patient has scheduled follow up with Juan Disla on 08/11/2019. 06/15/2019 [facility] Spoke with patient regarding use of emergency room and advised of walk in clinic.\T\nbsp; Patient stated he has used the ER and the walk in clinic\T\ nbsp;before and knows how the system works.\T\nbsp; He has appointment with Dr. Arnold next week. Jealni VISIT COUNT (12 MO.) 5 [facility]NA[facility]TE Carvajal TOTAL 5 NOTE: Visits indicate total known visits. ED/UCC VISIT TRACKING (12 MO.) 10/31/2019 12:43 [facility] [place] TYPE: Emergency COMPLAINT: - WEAKNESS 10/11/2019 04:08 [facility] [place] TYPE: Emergency COMPLAINT: - FALL DIAGNOSES: - Fall on same level, unspecified, initial encounter - Other fdc (current) drug therapy - Encounter for examination and observation following other acc - Essential (primary) hypertension 2019 07:45 [facility] [place] TYPE: Emergency COMPLAINT: - FALL, KNEE PAIN DIAGNOSES: - Abrasion, right knee, initial encounter - Pain in right knee - Essential (primary) hypertension - Other side guider (current) drug therapy - Fall from bed, initial encounter 08/01/2019 12:28 [facility] [place] TYPE: Emergency COMPLAINT: - FALL DIAGNOSES: - Essential (primary) hypertension - Other fdc (current) drug therapy - Weakness - Malignant neoplasm of prostate 06/14/2019 18:[address] [facility] [place] TYPE: Emergency COMPLAINT: - BACK PAIN DIAGNOSES: - Secondary malignant neoplasm of bone - Diarrhea, unspecified - Other side guider (current) drug therapy - Malignant neoplasm of prostate - Low back pain INPATIENT VISIT TRACKING (12 MO.) No inpatient visits to display in this time frame [email or web address]
[2019-11-01] MEDS ORDERED: ACETAMINOPHEN500 MG PO (06:22)
--- NOTE | 2019-11-01 21:12 | EKG ---
[facility] [address] [facility] [place] [address] Signed Normal sinus rhythm Moderate voltage criteria for LVH, may be normal variant Borderline ECG When compared with ECG of 14-DEC-2017 12:26, Criteria for Septal infarct are no longer present Confirmed by JOSEF HDEZ DO ([id number]) on 11/01/2019 9:12:38 PM Electronically Signed By: JOSEF HDEZ DO 11/01/192111 PATIENT NAME: YAW EARL Electrocardiogram DATE OF : 40 PHYSICIAN: JOSEF HDEZ DO REPORT #: [id number] REPORT IS CONFIDENTIAL AND NOT TO BE RELEASED WITHOUT AUTHORIZATION
== END 2019-11-01 10:18 | disposition home or self-care (01) ==
LOC: ED 12:42
DX: R53.1 Weakness (principal); I10 Essential (primary) hypertension; Z79.899 Other long term (current) drug therapy
CPT/HCPCS: 70450; 71045; 72125; 72131; 80053; 81001; 83605; 83880; 84439; 84443; 84484; 85025; 85610; 93005; 93010; 97163; 99285-25; G0480; J7040

== ENCOUNTER 2019-11-09 14:07 | Emergency (ER) | payer MEDICARE, OTHER ==
[~2019-11-09] VITALS: Ht 172.7 cm; Wt 77.1 kg
--- OUTSIDE RECORDS SUMMARY | ~2019-11-09 | XMS | Encounter Summary ---
Demographics + + + | Address | [address] | | | [place] [address] | + + + | Home Phone | | + + + | Preferred Language | Unknown | + + + | Marital Status | Single | + + + | Judaism Affiliation | Unknown | + + + | Race | Unknown | + + + | Ethnic Group | Unknown | + + + Author + + + | Author | [facility] | | | and [place] | + + + | Organization | [facility] | | | and [place] | + + + | Address | Unknown | + + + | Phone | Unavailable | + + + Support + + + + + | Name | Relationship | Address | Phone | + + + + + | Shonna Syed | ECON | [address] | | | | | [place] | | | | | [phone] | | + + + + + Care Team Providers + +------+ + | Care Inspector Plating Name | Role | Phone | + +------+ + | Elena Abdi MD | PCP | | + +------+ + Reason for Visit Auth/Cert +--------+--------+ + + + + | Status | Reason | Specialty | Diagnoses / | Referred By | Referred To | | | | | Procedures | Contact | Contact | +--------+--------+ + + + + | | | | Diagnoses | | | | | | | Neck mass | | | | | | | Procedures | | | | | | | WA EXC | | | | | | | PAROTD,LAT | | | | | | | LOBE,DISSECT | | | | | | | 5TH NERV | | | | | | | [place] EXC SKIN | | | | | | | MALIG | | | | | | | 1.1-2CM | | | | | | | FACE,FACIAL | | | | | | | Right | | | | | | | superficial | | | | | | | parotidectom | | | | | | | y with | | | | | | | facial nerve | | | | | | | dissection, | | | | | | | excision | | | | | | | right yazdanism | | | | | | | lesion | | | +--------+--------+ + + + + Encounter Details +--------+---------+ + + + | Date | Type | Department | Care Team | Description | +--------+---------+ + + + | 09/21/ | Surgery | [facility] | Wesley Gruber, | Right superficial | | 2019 | | [facility] | [address] | parotidectomy with | | | | [address] | [address] [place], | facial nerve | | | | [place], [place] | [place] [address] | dissection, excision | | | | [id number] | [phone] | right yazdanism lesion | | | | [phone] | | | +--------+---------+ + + + Social History + +-------+ [...] + + documented as of this encounter Last Filed Vital Signs + + + + + | Vital Sign | Reading | Time Taken | Comments | + + + + + | Blood Pressure | 145/90 | 09/21/2018 10:40 AM | | | | | PDT | | + + + + + | Pulse | 74 | 09/21/2018 10:40 AM | | | | | PDT | | + + + + + | Temperature | 36.8 C (98.2 F) | 09/21/2018 10:20 AM | | | | | PDT | | + + + + + | Respiratory Rate | 13 | 09/21/2018 10:40 AM | | | | | PDT | | + + + + + | Oxygen Saturation | 96% | 09/21/2018 10:40 AM | | | | | PDT [...] | | + + + + + documented in this encounter Functional Status + + + + | Functional Status | Response | Date of Assessment | + + + + | Are you deaf or do you have serious | No | 09/22/2018 | | difficulty hearing? | | | + + + + | Are you blind or do you have serious | No | 09/22/2018 | | difficulty seeing, even when wearing | | | | glasses? | | | + + + + | Do you have serious difficulty walking or | No | 09/22/2018 | | climbing stairs? (5 years old or older) | | | + + + + | Do you have difficulty dressing or bathing? | Yes | 09/22/2018 | | (5 years old or older) | | | + + + + | Because of a physical, mental, or emotional | Yes | 09/22/2018 | | condition, do you have difficulty doing | | | | errands alone such as visiting a doctor's | | | | office or shopping? [15 years old or | | | | older)] | | | + + + + + + + + | Cognitive Status | Response | Date of Assessment | + + + + | Because of a physical, mental, or emotional | No | 09/22/2018 | | condition, do you have serious difficulty | | | | concentrating, remembering, or making | | | | decisions? (5 years old or older) | | | + + + + documented as of this encounter Discharge Instructions Wesley Kern MD - 09/22/2018Apply neosporin ointment to wounds 3 times a day documented in this encounter Medications at Time of Discharge + + + +---------+ + + | Medication | Sig | Dispensed | Refills | Start | End Date | | | | | | Date | | + + + +---------+ + + | amLODIPine | Take 5 mg by mouth | | 0 | 08/05/19 | | | (NORVASC) 5 mg | Daily. | | | 19 | | | tablet | | | | | | + + + +---------+ + + | | Take 1-2 tablets by | 30 | 0 | 09/23/19 | | | HYDROcodone-acetamin | mouth every 4 hours | tablet | | 19 | | | ophen (NORCO) 5-325 | as needed for Pain. | | | | | | mg per tablet | | | | | | + + + +---------+ + + | RA ASPIRIN EC 81 | Take 81 mg by mouth | | 0 | 12/17/19 | | | MG EC tablet | Daily. | | | 18 | | + + + +---------+ + + documented as of this encounter Procedure Notes Wesley Gruber MD - 09/22/2018 9:11 AM PDTWounds intact. Minimal drainage. Facial nerv e function intact. Drain removed. will discharge. F/u 5 days in [place] officeElectroni vu signed by Wesley Gruber MD at 09/22/2018 9:13 AM PDTdocumented in this encounter Miscellaneous Notes Plan of Care - Kevin Ko RN - 09/22/2018 3:43 AM PDTPt oriented x4. HRRR. Lung s clear. Bowel tones active. Voiding frequently in urinal. Stapes and sutures intact. Open t o air. Scant amount of sanguinous output to temporal and neck incision. BI hooked up to high continuous wall suction with scant amount of sanguinous output. 1 norco given for pain with good control. Swelling to right side of neck present. No hematoma present. Calls appropriat noah. Rounding in place. lan of Care - Bogdan Browne, ZORAN - 09/21/2018 6:36 PM PDTPt calm, cooperative, A&Ox4. Received pt to the surgical unit at 1200, report given by Bill MEEHAN from PACU, questions answ ered. Pt has mild/mod pain to surgical site, prn Tremont 1 tab given w/ good relief noted. Pt has BI drain to R lateral neck incision on Full Continuous Suction per MD request, draining scant amount of serosanguinous fluid. Pt denies SOB, denies n/v and tolerating general diet well. Pt has urinary urgency/frequency. VSS, cms intact, call light within reach. Electron ically signed by Bogdan Browne RN at 09/21/2018 6:41 PM PDTOp Note - Wesley Gruber MD - 09/21/2018 10:37 AM PDT [facility] [address] [facility] [address] OPERATIVE REPORT WESLEY GRUBER MD Patient: RK EARL Admitting: WESLEY Matat ALLYN MR #: [id number] LOC: PT TYPE: Adm Date: 09/21/2018 : 1940 DATE: 09/21/2018 PREOPERATIVE DIAGNOSES: 1. Right parotid mass. 2. Right yazdanism skin lesion. POSTOPERATIVE DIAGNOSES: 1. Right parotid mass. 2. Right yazdanism skin lesion. PROCEDURE: 1. Right superficial parotidectomy with facial nerve dissection. 2. Wide excision of a right facial lesion. SURGEON: Wesley Gruber MD BORDER MACHINE OPERATOR: Gabriel Ortiz MD. ANESTHESIA: General orotracheal, Jimy Viramontes MD. PREOPERATIVE HISTORY: The patient is a 77-year-old man who has been noted to have a right parotid mass. This was identified last year on MRI for workup of metastatic prostate cancer for which Dr. Arnold is treating him. The mass has gotten larger. It is about 3 cm i n the right parotid. He has also been noted to have a pigmented lesion on the right yazdanism, measures about 15 mm, very suspicious for melanoma. He was taken to the operating room fo r the above-mentioned procedures. OPERATIVE PROCEDURE AND FINDINGS: After informed consent, the patient was taken to the ope rating room, placed in the supine position where general orotracheal anesthesia was induced. The patient and procedure were verified. The patient received preoperative intravenous An cef. The right face was sterilely prepped and draped. The head and neck were turned to the left. The parotidectomy incision was marked, injected with 1-percent lidocaine with epine phrine and then the incision was made. Subcutaneous flaps elevated anteriorly and posterior ly. The facial nerve was then identified at the stylomastoid foramen. The nerve branches w ere followed out peripherally starting superiorly extending down inferiorly, taking care to preserve the facial nerve. The tumor was kept well inside the specimen. Bleeding was contr olled with bipolar and needlepoint cautery. Larger vessels were clamped, divided and tied with 3-0 silk. The specimen was removed, sent to pathology. The wound was copiously lavage d with saline. Hemostasis was verified. All nerve branches were then checked with the nerv e stimulator and stimulated normally. The wound was then closed over a 7-mm flat Julian drai n exiting a separate stab wound inferiorly with 4-0 interrupted Vicryl subcutaneous, 5-0 run angie nylon superiorly and loraine inferiorly. The drain was sutured into place with a 3-0 silk. The right yazdanism lesion was then addressed. It was a brownish irregularly margined 15 mm f lat skin lesion non-ulcerated just to the lateral the right lateral canthus. An elliptical excision in a lateral direction was marked with 2-3 mm margins around the lesion. One-perce nt lidocaine with epinephrine was injected. The lesion was then removed sharply, suture dafne garland in the superior edge, sent to pathology in formalin. The wound edges were elevated sev eral centimeters to allow for a tension-free closure. Hemostasis was obtained with needlepo int cautery. The wound was then closed with 4-0 interrupted Vicryl subcutaneous, 5-0 runnin g nylon in the skin. The patient was then awakened, extubated and transported to the [facility] room in good condition. COMPLICATIONS: None. BLOOD LOSS: About 50 mL. SPECIMEN: To pathology: 1. Right parotid superficial lobe. 2. Right yazdanism lesion. DRAIN: Flat Julian. WESLEY GRUBER MD Dictated by WESLEY GRUBER MD 09/21/2018 10:37:29 Transcribed on 09/21/2018 13:04:49 by in job# [id number] Confirmation #: [id number] cc: ELENA ABDI MD rief Op Note - Wesley Gruber MD - 09/21/2018 10:25 AM PDTFormatting of this note mo ht be different from the original. BRIEF OPERATIVE NOTE [facility] Pt. Name/Age/: Rk Bourne y.o. 1940 Med. Record Number: [id number] Date of admission: 09/21/2018 Date of Operation/Procedure: 09/21/2018 Preoperative Diagnosis: * No pre-op diagnosis entered * Postoperative Diagnosis: * Neck mass [R22.1] Surgeon: Wesley Gruber MD Chemical Laboratory Scientist: None Anesthesia Provider(s): Anesthesiologist: Jimy Viramontes MD Anesthesia Type: General Procedure(s): Right superficial parotidectomy with facial nerve dissection, excision right yazdanism lesion Operative Findings: Wound Closure: Primary closure Evidence of infection: No infection noted. Estimated Blood Loss: Minimal, less than 100mL IV Fluids: refer to anesthesia record Blood Transfusion: None Drains: none Drain/Device Site 09/21/18 0938 #1 Right neck collapsible closed device (Active) Specimen (s): ID Type Source Tests Collected by Time Destination A : Right parotid gland Tissue Parotid, Right SPECIMEN TO PATHOLOGY Wesley Gruber MD 09/21 0930 Pathology B : Right yazdanism lesion Tissue SPECIMEN TO PATHOLOGY Wesley Gruber MD 09/21/2018 0943 Pat hology Implants: * No implants in log * Counts: Instrument, sponge, and needle counts were correct prior to closure and at the con clusion of the case. Complications: None Disposition: The patient was taken to PACU Immediate Post-Operative Condition: Stable Electronically signed by: Wesley Gruber MD, 09/21/2018, 10:25 nterval H&P Note (unlinked) - Wesley Gruber MD - 09/21/2018 8:12 AM [facility] SURGICAL INTERIM HISTORY AND PHYSICAL UPDATE Pt. Name/Age/: Rk Bourne y.o. 1940 Date of admission: 09/21/2018 The current H&P was reviewed. The patient was reexamined. Re-evaluation of the patient co nfirms the necessity for the scheduled procedure. No change has occurred in the patient s condition since the H&P was completed less than 30 days ago. Electronically signed by: Wesley Gruber, 09/21/2018 8:12 [facility] documented in this e ncounter Plan of Treatment Not on filedocumented as of this encounter Procedures + +--------+ + + + | Procedure Name | Priori | Date/Time | Associated Diagnosis | Comments | | | ty | | | | + +--------+ + + + | PAROTIDECTOMY | | 09/21/2018 | Neck mass | | | | | 8:30 AM | | | | | | PDT | | | + +--------+ + + + | SURGICAL PATHOLOGY | Routin | 09/21/2018 | | Results for this | | EXAM | e | 12:00 AM | | procedure are in the | | | | PDT | | results section. | + +--------+ + + + documented in this encounter Results Surgical Pathology Exam (09/21/2018 12:00 AM PDT) + + | Specimen | + + | | + + + + + | Narrative | Performed At | + + + | SPECIMEN(S): A RIGHT PAROTID GLAND SPECIMEN(S): B RIGHT CHURCH | [facility] | | SPECIMEN SOURCE: A. RIGHT PAROTID GLAND B. RIGHT CHURCH [facility] | [facility] | | HISTORY: R22.1 (neck mass). Right superficial parotidectomy with | | | facial nerve dissection, excision right yazdanism mass. FINAL | | | PATHOLOGIC DIAGNOSIS: A. 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 - Focal chronic stromal | | | inflammation. - Incidental reactive lymphoid tissue (lymph nodes). | | | B. Skin, right yazdanism, excision: - Malignant melanoma, arising | | | in melanoma in situ. - Procedure: Excision. - | | | Tumor site: Right yazdanism. - Clinical size: Not available. | | | - Histologic type: Superficial spreading-type. - | | | Ulceration: Not identified. - Breslow thickness: 0.55 mm. | | | - Huey level: 2. - Margins: - | | | Lateral margin: Uninvolved by invasive or in situ melanoma. | | | - Distance of melanoma in situ from closest lateral | | | margin: less than 1 mm to blue (superior, anterior (B1)) and 1 mm to | | | black (inferior, anterior, (B1)) ink. - | | | Distance of invasive melanoma from closest lateral margin: 4 mm | | | (superior and inferior). - Deep margin: Uninvolved | | | by invasive melanoma. - Distance of | | | invasive melanoma from deep margin: 2.5 mm. - Lymph-vascular | | | invasion: Not identified. - Perineural invasion: Not | | | identified. - Growth phase: Radial. - Mitotic | | | rate: None identified. - Tumor infiltrating lymphocytes: | | | Non-brisk. - Tumor aggression: Not identified. - | | | Microsatellitosis: Not identified. - Macroscopic satellite | | | nodules: Not identified. - Additional findings: Nevus | | | remnant (intradermal). - Pathologic stage: pT1a, pNX, pMX. | | | - Ancillary melanoma molecular test: Not requested. | | | COMMENT: The patient's history of metastatic prostate carcinoma is | | | noted. The histologic features are not typical of prostatic | | | carcinoma, and are also significantly different than the concurrent | | | melanoma. The results are called to Monse in the office of | | | Reny on 09-23-18 at 15:40. As part of [facility]' | | | Quality Improvement Program, this case was reviewed by another member | | | of our pathology staff. JVR:[facility]:[place]:C1NR MICROSCOPIC | | | EXAMINATION: Histologic sections of all submitted blocks are examined | | | by light microscopy. These findings, together with the gross | | | examination, support the pathologic diagnosis. B. Immunostains are | | | performed on blocks (B1-B2) with appropriate controls for Melan A, | | | which highlights the atypical melanocytes in the area of concern, | | | supporting the diagnosis. JVR:[place] GROSS DESCRIPTION: Two | | | specimens are received in two containers, labeled "BD." A. The | | | specimen, labeled "BD, right parotid gland," is received in formalin | | | and consists of a 27.0 g, 5.0 x 4.5 x 2.5 cm irregular portion of | | | cadena-pink and lobular soft tissue. The external surface is inked | | | blue and the specimen is serially sectioned to show cadena-yellow and | | | lobulated cut surfaces with a 2.0 x 1.3 x 1.2 cm well-circumscribed | | | cadena-brown nodule abutting the blue inked resection margin. No other | | | discrete lesions are identified. Ivory Polisher sections are | | | submitted as follows: (A1) Lesion to blue inked resection margin | | | (A2) Lesion to uninvolved parenchyma (A3) Lesion (A4-A6) | | | Uninvolved parenchyma B. The specimen, labeled "DB, right yazdanism | | | lesion," is received in formalin and consists of a 3.0 x 1.6 cm skin | | | ellipse excised to a depth of 0.4 cm and oriented as "stitch on | | | superior margin." The epidermis is cadena-white and remarkable for | | | a 1.4 x 1.0 cm well-defined cadena-brown macule located within 0.1 cm of | | | the nearest resection margin. Inking is as follows: Superior = blue, | | | inferior = black. The specimen is serially sectioned from anterior | | | to posterior to show the macule extending to a depth of 0.1 cm and | | | located within 0.3 cm of the deep margin. The specimen is entirely | | | submitted sequentially from anterior to posterior in cassette | | | (B1-B2). AR (under the direct supervision of a pathologist) The | | | Gross Description was prepared using a voice recognition system. The | | | report was reviewed for accuracy; however, sound-alike word errors, | | | addition and/or deletions may occur. If there is any question about | | | this report, please contact Client Services. ADDITIONAL NOTES: | | | Immunohistochemical and/or in situ hybridization studies were | | | performed on this case with the appropriate positive controls that | | | react as expected. This test was developed and its performance | | | characteristics determined by [facility]. It has not been | | | cleared or approved by the U.S. Food and Drug Administration. The | | | FDA has determined that such clearance or approval is not necessary. | | | This test is used for clinical purposes. It should not be regarded | | | as investigational or for research. [facility] is certified | | | under the Clinical Laboratory Improvement Amendments of 1988 (CLIA) | | | as qualified to perform high complexity clinical laboratory testing. | | | PERFORMING LABORATORY: The technical component was performed by | | | [facility], [address] [place] [id number] (Medical | | | Director: Bella Mendoza MD; CLIA# [id number]). Professional | | | interpretation was performed by [facility] [place] | | | [facility], [address] [place] [address] | | | [id number] (Auto Service Advisor: Ivan Velazquez M.D.). Diagnostician: | | | Ivan Velazquez MD Pathologist Electronically Signed 09/23/2018 | | | | | + + + + +---------+ + + | Performing | Address | City/State/Zipcode | Phone Number | | Organization | | | | + +---------+ + + | [facility] | | | | | [facility] | | | | + +---------+ + + documented in this encounter Visit Diagnoses + + | Diagnosis | + + | Neck mass Swelling, mass, or lump in head and neck | + + documented in this encounter Administered Medications + +--------+ +------+------+------+ | Medication Order | MAR | Action | Dose | Rate | Site | | | Action | Date | | | | + +--------+ +------+------+------+ | amLODIPine (NORVASC) tablet 5 | Given | 09/23/19 | 5 mg | | | | mg 5 mg, Oral, DAILY, First dose | | 19 8:24 | | | | | on Wed09/21/18 at 1200 | | AM PDT | | | | + +--------+ +------+------+------+ +-------+ +------+---+---+ | Given | 09/22/19 | 5 mg | | | | | 19 12:28 | | | | | | PM PDT | | | | +-------+ +------+---+---+ +---+---+ | | | +---+---+ + +-------+ +-------+---+---+ | aspirin EC tablet 81 mg 81 mg, | Given | 09/23/19 | 81 mg | | | | Oral, DAILY, First dose on Wed | | 19 8:25 | | | | | 09/21/18 at 1200 | | AM PDT | | | | + +-------+ +-------+---+---+ +-------+ +-------+---+---+ | Given | 09/22/19 | 81 mg | | | | | 19 12:28 | | | | | | PM PDT | | | | +-------+ +-------+---+---+ +---+---+ | | | +---+---+ + +-------+ +---+---+ + | bacitracin 50,000 units/10 mL | Given | 09/22/19 | | | Surgical | | 50,000 Units in sodium chloride | | 19 9:40 | | | Site | | for irrigation 0.9% 1,000 mL | | AM PDT | | | | | irrigation PRN, Starting Wed | | | | | | | 09/21/18 at 0940, Intra-op | | | | | | + +-------+ +---+---+ + +---+---+ | | | +---+---+ + +-------+ + +---+ + | bacitracin topical ointment | Given | 09/22/19 | 1 | | Surgical | | PRN, Starting 09/21/18 at 0941, | | 19 9:41 | Applicat | | Site | | Intra-op | | AM PDT | ion | | | + +-------+ + +---+ + +---+---+ | | | +---+---+ + +-------+ + +---+---+ | HYDROcodone-acetaminophen | Given | 09/23/19 | 1 tablet | | | | (NORCO) 5-325 mg per tablet 1-2 | | 19 9:57 | | | | | tablet 1-2 tablet, Oral, EVERY 4 | | AM PDT | | | | | HOURS PRN, Pain, Starting Wed | | | | | | | 09/21/18 at 1142, If ineffective | | | | | | | use Tremont 10/325 if ordered. If | | | | | | | not tolerated, use Percocet then | | | | | | | Oxycodone if ordered., | | | | | | + +-------+ + +---+---+ +-------+ + +---+---+ | Given | 09/23/19 | 1 tablet | | | | | 19 5:40 | | | | | | AM PDT | | | | +-------+ + +---+---+ | Given | 09/22/19 | 1 tablet | | | | | 19 9:16 | | | | | | PM PDT | | | | +-------+ + +---+---+ +---+---+ | | | +---+---+ + +-------+ +---------+---+---+ | HYDROmorphone (DILAUDID) | Given | 09/22/19 | 0.25 mg | | | | injection 0.2-0.6 mg 0.2-0.6 mg, | | 19 11:03 | | | | | Intravenous, EVERY 5 MIN PRN, | | AM PDT | | | | | Pain, Starting 09/21/18 at | | | | | | | 1048, First dose must be lowest | | | | | | | dose, can increase subsequent | | | | | | | doses by 0.2mg within dosing | | | | | | | range. If patient meets opioid | | | | | | | tolerant definition, can start | | | | | | | with 0.4mg dose. [Maximum total | | | | | | | PACU dose 4mg] Use Pasero | | | | | | | Sedation Scale. [Opioid tolerant | | | | | | | = One week or longer, | | | | | | | oxglbm-aar-ekcqi use of at least | | | | | | | the following DAILY dose: 60mg | | | | | | | oral morphine, 60mg oral | | | | | | | hydrocodone, 30mg oral oxycodone, | | | | | | | 8mg oral hydromorphone, fentanyl | | | | | | | patch 25mcg/hr, or equivalent | | | | | | | dose of another opioid], | | | | | | | Recovery/Phase I | | | | | | + +-------+ +---------+---+---+ +-------+ +---------+---+---+ | Given | 09/22/19 | 0.25 mg | | | | | 19 10:51 | | | | | | AM PDT | | | | +-------+ +---------+---+---+ +---+---+ | | | +---+---+ + +---------+ +---+---+---+ | lactated ringers (LR) infusion | New Bag | 09/22/19 | | | | | at 10-100 mL/hr, Intravenous, | | 19 9:31 | | | | | CONTINUOUS, Starting 09/21/18 | | AM PDT | | | | | at 0730, TKO., Pre-op | | | | | | + +---------+ +---+---+---+ + + +--------+-------+--------+ | Continued by Anesthesia | 09/22/19 | | | | | | 19 8:31 | | | | | | AM PDT | | | | + + +--------+-------+--------+ | New Bag | 09/22/19 | 1,000 | 100 | Right | | | 19 7:43 | mLs | mL/hr | Arm | | | AM PDT | | | | + + +--------+-------+--------+ +---+---+ | | | +---+---+ + +-------+ +-------+---+ + | lidocaine 1%-EPINEPHrine | Given | 09/22/19 | 6 mLs | | Surgical | | 1:100,000 injection PRN, | | 19 9:32 | | | Site | | Starting 09/21/18 at 0932, | | AM PDT | | | | | Intra-op | | | | | | + +-------+ +-------+---+ + +---+---+ | | | +---+---+ + +---------+ +---+-------+---+ | sodium chloride 0.45% with KCl | New Bag | 09/22/19 | | 100 | | | 20 mEq/L (1/2 NS + KCL 20) | | 19 10:41 | | mL/hr | | | infusion at 100 mL/hr, | | PM PDT | | | | | Intravenous, CONTINUOUS, Starting | | | | | | | 09/21/18 at 1200 | | | | | | + +---------+ +---+-------+---+ +---------+ +---+-------+---+ | New Bag | 09/22/19 | | 100 | | | | 19 12:33 | | mL/hr | | | | PM PDT | | | | +---------+ +---+-------+---+ +---+---+ | | | +---+---+ documented in this encounter
--- OUTSIDE RECORDS SUMMARY | ~2019-11-09 | XMS | Encounter Summary ---
Demographics + + + | Address | [address] | | | [place] [address] | + + + | Home Phone | | + + + | Preferred Language | Unknown | + + + | Marital Status | Single | + + + | Methodist Affiliation | Unknown | + + + | Race | Unknown | + + + | Ethnic Group | Unknown | + + + Author + + + | Author | [facility] | | | and [place] | + + + | Organization | [facility] | | | and [place] | + + + | Address | Unknown | + + + | Phone | Unavailable | + + + Support + + + + + | Name | Relationship | Address | Phone | + + + + + | Shonna Kunal | ECON | [address] | | | | | [place] | | | | | [address] | | + + + + + Care Team Providers + +------+ + | Care Scale Model Maker Name | Role | Phone | + +------+ + | Unknown, Doctor | PCP | | + +------+ + Reason for Visit + +--------+ + | Reason | Onset | Comments | | | Date | | + +--------+ + | Medication Refill | 07/07/ | | | | 2015 | | + +--------+ + Encounter Details +--------+--------+ + + + | Date | Type | Department | Care Team | Description | +--------+--------+ + + + | 07/07/ | Refill | [facility] | [place], | Medication Refill | | 2016 | | [facility] | Maximus Julian MD [address] | | | | | [facility]OGY CL[address] [address] | [facility] | | | | | [facility] | [place] [address] | | | | | [place] [address] | [phone] | | | | | [phone] | | | +--------+--------+ + + + [...]
--- OUTSIDE RECORDS SUMMARY | ~2019-11-09 | XMS | Encounter Summary ---
Demographics + + + | Address | [address] | | | [place] [address] | + + + | Home Phone | | + + + | Preferred Language | Unknown | + + + | Marital Status | Single | + + + | Advent Affiliation | Unknown | + + + | Race | Unknown | + + + | Ethnic Group | Unknown | + + + Author + + + | Author | [facility] | | | and [place] | + + + | Organization | [facility] | | | and [...] [place] | | | | | [address] | | + + + + + Care Team Providers + +------+ + | Care Banbury Mixer Operator Name | Role | Phone | + +------+ + | Leonardo Abdi MD | PCP | | + +------+ + Encounter Details +--------+ + + + + | Date | Type | Department | Care Team | Description | +--------+ + + + + | 09/30/ | Imaging | [facility] | Provider, | | | 2019 | Exam | [facility] | MD [address] | | | | | IMAGING [address] | | | | | [address] [place] | [place] [address] | | | | | [place] [address] | | | | | | [phone] | | | +--------+ + + + [...] | + +--------+ + + + | MRI BRAIN WO | Routin | 12/14/2017 | | Results for this | | CONTRAST | e | 12:00 AM | | procedure are in the | | | | PDT | | results section. | + +--------+ + + + documented in this encounter Results MRI Brain wo Contrast (12/14/2017 12:00 AM PDT) + + | Specimen | + + | | + + + + + | Narrative | Performed At | + + + | External films for comparison only | [facility] | | | | | No results will be in the chart. | | + + + + +---------+ + + | Performing | Address | City/State/Zipcode | Phone Number | | Organization | | | | + +---------+ + + | [facility] | | | | + +---------+ + + documented in this encounter Visit Diagnoses Not on filedocumented in this encounter"
--- OUTSIDE RECORDS SUMMARY | ~2019-11-09 | XMS | Clinical Summary ---
Demographics + + + | Address | [address] | | | [place] [address] | + + + | Home Phone | | + + + | Preferred Language | Unknown | + + + | Marital Status | Single | + + + | Yarsanism Affiliation | Unknown | + + + [...] [place] | | | | | [address] | | + + + + + Care Team Providers + +------+ + | Care Asphalt Paving Machine Operator Name | Role | Phone | [...] +--------+ +---------+--------+ | MEDICARE | MEDICA | [id number] | 09/18/19 | [phone] | | Medica | | | RE | | 06-Pre | 5 | | re | | | PART A | | sent | | | | | | AND B | | | | | | + +--------+ +--------+ +---------+--------+ | [employer] | MODA | [id number] | 09/21/19 | [phone] | | Medica [...] | | [address] (Home) | [place] [address] | + +--------+ +--------+ + + Advance Directives + + + + + | Type | Date Recorded | Patient | Explanation | | | | Saw Maker | | + + + + + | Power of | | | | | Biodiesel Process Control Technician | | | | + + + [...]
--- OUTSIDE RECORDS SUMMARY | ~2019-11-09 | XMS | Encounter Summary ---
Demographics + + + | Address | [address] | | | [place] [address] | + + + | Home Phone | | + + + | Preferred Language | Unknown | + + + | Marital Status | Single | + + + | Zoroastrian Affiliation | Unknown | + + + | Race | Unknown | + + + | Ethnic Group | Unknown | + + + Author + + + | Author | [facility] | | | and [place] | + + + | Organization | [facility] | | [...] [place] | | | | | [address] | | + + + + + Care Team Providers + +------+ + | Care It Administrator Name | Role | Phone | + [...] | | | | | | | MN EXC | | | | | | | PAROTD,LAT | | | | | | | LOBE,DISSECT | | | | | | | 5TH NERV | | | | | | | MN EXC SKIN | | | | | [...] | | | | | | right mandaeism | | | | | | | lesion | | | +--------+--------+ + + + + Encounter Details +--------+ + + + + | Date | Type | Department | Care Team | Description | +--------+ + + + + | 06/05/ | Hospital | [facility] | Wesley Gruber Sigrid, | Neoplasm of | | 2019 - | Encounter | MED CTR SUR[facility]ICAL | [address] | uncertain behavior | | | | [address] [place] | [address] [place], | of parotid gland | | 09/22/ | | [place] [address] | [place] [address] | | | 2019 | | [phone] | [phone] | | | | | | | | +--------+ + + + [...] has mild/mod pain to surgical site, prn [place] 1 tab given w/ good relief noted. [...] Gruber MD - 09/21/2018 10:37 AM PDT [facility] [address] [facility] [address] OPERATIVE REPORT WESLEY GRUBER MD Patient: RK EARL Admitting: WESLEY Matta ALLYN MR #: [id number] LOC: PT TYPE: Adm Date: 09/21/2018 : 1940 DATE: 09/21/2018 PREOPERATIVE DIAGNOSES: 1. Right parotid mass. 2. Right mandaeism skin lesion. POSTOPERATIVE DIAGNOSES: 1. Right parotid mass. 2. Right mandaeism skin lesion. PROCEDURE: 1. Right superficial parotidectomy with facial nerve dissection. 2. Wide excision of a right facial lesion. SURGEON: Wesley Gruber MD VICE PRESIDENT OF BUSINESS DEVELOPMENT: Gabriel Ortiz MD. ANESTHESIA: General orotracheal, Jimy [...] have a pigmented lesion on the right mandaeism, measures about 15 mm, very suspicious for [...] place with a 3-0 silk. The right mandaeism lesion was then addressed. It was a [...] then awakened, extubated and transported to the [facility] room in good condition. COMPLICATIONS: None. BLOOD LOSS: About 50 mL. SPECIMEN: To pathology: 1. Right parotid superficial lobe. 2. Right mandaeism lesion. DRAIN: Flat Julian. WESLEY GRUBER MD Dictated by WESLEY GRUBER MD 09/21/2018 10:37:29 Transcribed on 09/21/2018 13:04:49 by in job# [id number] Confirmation #: [id number] cc: ELENA ABDI MD rief Op Note - Wesley Gruber MD - 09/21/2018 10:25 AM PDTFormatting of this note mo ht be different from the original. BRIEF OPERATIVE NOTE [facility] Pt. Name/Age/: Rk Bourne y.o. 1940 Med. Record Number: [id number] Date of admission: 09/21/2018 Date of Operation/Procedure: 09/21/2018 Preoperative Diagnosis: * No pre-op diagnosis entered * Postoperative Diagnosis: * Neck mass [R22.1] Surgeon: Wesley Gruber MD Government Relations Director: None Anesthesia Provider(s): Anesthesiologist: Jimy Viramontes MD Anesthesia Type: General Procedure(s): Right superficial parotidectomy with facial nerve dissection, excision right mandaeism lesion Operative Findings: Wound Closure: Primary closure [...] MD 09/21 0930 Pathology B : Right mandaeism lesion Tissue SPECIMEN TO PATHOLOGY Wesley Gruber [...] Wesley Gruber MD - 09/21/2018 8:12 AM [facility] H[facility]ORY AND [...] signed by: Wesley Gruber, 09/21/2018 8:12 [facility] documented in this e ncounter Plan of [...] A RIGHT PAROTID GLAND SPECIMEN(S): B RIGHT RELIGIOUS | [place] [facility] | | SPECIMEN SOURCE: A. RIGHT PAROTID GLAND B. RIGHT RELIGIOUS CLINICAL | [facility]TE | | HISTORY: R22.1 (neck mass). Right superficial parotidectomy with | | | facial nerve dissection, excision right mandaeism mass. FINAL | | | PATHOLOGIC DIAGNOSIS: A. 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 - Focal chronic stromal | | | inflammation. - Incidental reactive lymphoid tissue (lymph nodes). | | | B. Skin, right mandaeism, excision: - Malignant melanoma, arising | | | in melanoma in situ. - Procedure: Excision. - | | | Tumor site: Right mandaeism. - Clinical size: Not available. | | [...] on 09-23-18 at 15:40. As part of [facility]' | | | Quality Improvement Program, this case was reviewed by another member | | | of our pathology staff. JVR:[facility]:C1NR MICROSCOPIC | | | EXAMINATION: Histologic sections [...] concern, | | | supporting the diagnosis. JVR:[facility] GROSS DESCRIPTION: Two | | | specimens [...] | | | discrete lesions are identified. [place] Hardware Installer sections are | | | submitted as follows: (A1) Lesion to blue inked resection margin | | | (A2) Lesion to uninvolved parenchyma (A3) Lesion (A4-A6) | | | Uninvolved parenchyma B. The specimen, labeled "DB, right mandaeism | | | lesion," is received in [...] performance | | | characteristics determined by [facility]. It has not been | | | cleared or approved by the U.S. Food and Drug Administration. The | | | FDA has determined that such clearance or approval is not necessary. | | | This test is used for clinical purposes. It should not be regarded | | | as investigational or for research. [facility] is certified | | | under the Clinical Laboratory Improvement Amendments of 1988 (CLIA) | | | as qualified to perform high complexity clinical laboratory testing. | | | PERFORMING LABORATORY: The technical component was performed by | | | [facility], [address] [place] [id number] (Medical | | | Director: Bella Mendoza MD; CLIA# [id number]). Professional | | | interpretation was performed by [facility], [place] | | | [facility], [address] [place] [address] | | | [phone] (Painter And Body Work: Ivan Velazquez M.D.). 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 If | | | [...] | | | | | | | woumue-dgx-xnbgt use of at least | | | [...] +--------+-------+--------+ +---+---+ | | | +---+---+ + +---------+ +---+-------+---+ | sodium chloride 0.45% with KCl | New Bag | 09/22/19 | | 100 | | | 20 mEq/L (2 NS + KCL 20) | | 19 [...]
--- OUTSIDE RECORDS SUMMARY | ~2019-11-09 | XMS | Encounter Summary ---
Demographics + + + | Address | [address] | | | [place] [address] | + + + | Home Phone | | + + + | Preferred Language | Unknown | + + + | Marital Status | Single | + + + | Quaker Affiliation | Unknown | + + + | Race | Unknown | + + + | Ethnic Group | Unknown | + + + Author + + + | Author | [facility] | | | and [place] | + + + | Organization | [facility] | | | and [...] [place] | | | | | [address] | | + + + + + Care Team Providers + +------+ + | Care Membership Manager Name | Role | Phone | + [...] | | | [address] [place] | [place] [address] | | | | | [place] [address] | | | | | | [phone] | | | +--------+ + + + [...]
--- OUTSIDE RECORDS SUMMARY | ~2019-11-09 | XMS | Encounter Summary ---
Demographics + + + | Address | [address] | | | [place] [address] | + + + | Home Phone | | + + + | Preferred Language | Unknown | + + + | Marital Status | Single | + + + | Lutheran Affiliation | Unknown | + + + | Race | Unknown | + + + | Ethnic Group | Unknown | + + + Author + + + | Author | [facility] | | | and [place] | + + + | Organization | [facility] | | [...] [place] | | | | | [address] | | + + + + + Care Team Providers + +------+ + | Care Worm Picker Name | Role | Phone | + [...] | | | | | | | NV EXC | | | | | | | PAROTD,LAT | | | | | | | LOBE,DISSECT | | | | | | | 5TH NERV | | | | | | | NV EXC SKIN | | | | | [...] | | | | | | right quaker | | | | | | | [...] | | | | | [address] | [place] | | | | | [place] | [address] | | | | | [address] | | | | | | [phone] | | | +--------+ + + + [...] excision | | | | | right quaker lesion | | | | | (Right [...] +----+---+ + + | | 0 | Anita | | | | 8 | 43-degrees | | | | 5 | | | | | 1 | | | +----+---+ + + | | 0 | First | | | | 8 | Inc/Proc St | | | | 5 | | | | | 3 | | | +----+---+ + + | | 1 | Anita off | | | | 0 | [...] 09/22/18929 by | | carol | Forearm; njew-ktd-xbwcmz catheter | Meron Bryan RN | Radha [...] EVALUATION Rk Kee 77 y.o. male 1940 [id number] Procedure(s) Right superficial parotidectomy with facial nerve dissection, excision right quaker lesion (Right Neck) Cooperates? Yes Mental Status [...] signed by Jimy Viramontes MD 09/21/2018 14:14 [facility] signed by Jimy Viramontes MD at [...] EVALUATION Rk Kee 77 y.o. male 1940 [id number] Procedure(s): Right superficial parotidectomy with facial nerve dissection, excision right quaker lesion (Right Neck) Medical,anesthesia, drug, allergy histories [...]
--- OUTSIDE RECORDS SUMMARY | ~2019-11-09 | XMS | Encounter Summary ---
Demographics + + + | Address | [address] | | | [place] [address] | + + + | Home Phone | | + + + | Preferred Language | Unknown | + + + | Marital Status | Single | + + + | Jain Affiliation | Unknown | + + + | Race | Unknown | + + + | Ethnic Group | Unknown | + + + Author + + + | Author | [facility] | | | and [place] | + + + | Organization | [facility] | | [...] [place] | | | | | [address] | | + + + + + Care Team Providers + +------+ + | Care Health Care Analyst Name | Role | Phone | + [...] + + | 01/02/ | Refill | [facility] | Rashard Rivera, | Medication Refill | | 2015 | | MED CTR MED[facility] | [address] | | | | | [address]OG[address] CL[address] | [facility] [place], | | | | | [address] | [place] [address] | | | | | [place] [address] | [phone] | | | | | [phone] | | | +--------+--------+ + + + [...]
[~2019-11-09 14:07] MED LIST changes: +ACETAMINOPHEN500 MG PO
--- OUTSIDE RECORDS SUMMARY | 2019-11-09 14:10 | XMS ---
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 Care History Medical/Surgical 10/09/2019 [facility] Patient stated that he had fallen and could not get up.\T\nbsp; It scared him to the point of having to call EMS to get him to the ED.\T\nbsp; He will consider calling the Clinic to book a follow up with Juan Disla if need be. 08/02/2019 [facility] Patient has scheduled follow up with Juan Disla on 08/11/2019. 06/15/2019 [facility] Spoke with patient regarding use of emergency room and advised of walk in clinic.\T\nbsp; Patient stated he has used the ER and the walk in clinic\T\ nbsp;before and knows how the system works.\T\nbsp; He has appointment with Dr. Arnold next week. Jelani VISIT COUNT (12 MO.) 6 [facility] TOTAL 6 NOTE: Visits indicate total known visits. ED/UCC VISIT TRACKING (12 MO.) 11/09/2019 14:08 [facility] [place] TYPE: Emergency COMPLAINT: - CONSTIPATION 10/31/2019 12:43 [facility] [place] TYPE: Emergency COMPLAINT: - WEAKNESS DIAGNOSES: - Weakness - Essential (primary) hypertension - Other fci (current) drug therapy 10/11/2019 04:08 [facility] [place] TYPE: Emergency COMPLAINT: - FALL DIAGNOSES: - Fall on same level, unspecified, initial encounter - Other manager long term care (current) drug therapy - Encounter for examination and observation following other acc - Essential (primary) hypertension 2019 07:45 [facility] [place] TYPE: Emergency COMPLAINT: - FALL, KNEE PAIN DIAGNOSES: - Abrasion, right knee, initial encounter - Pain in right knee - Essential (primary) hypertension - Other fci (current) drug therapy - Fall from bed, initial encounter 08/01/2019 12:28 [facility] [place] TYPE: Emergency COMPLAINT: - FALL DIAGNOSES: - Essential (primary) hypertension - Other fci (current) drug therapy - Weakness - Malignant neoplasm of prostate 06/14/2019 18:42 [facility] [place] TYPE: Emergency COMPLAINT: - BACK PAIN DIAGNOSES: - Secondary malignant neoplasm of bone - Diarrhea, unspecified - Other manager long term care (current) drug therapy - Malignant neoplasm of prostate - Low back pain INPATIENT VISIT TRACKING (12 MO.) No inpatient visits to display in this time frame [email or web address]
== END 2019-11-09 18:35 | disposition home or self-care (01) ==
LOC: ED 14:07
DX: K56.41 Fecal impaction (principal); I10 Essential (primary) hypertension; Z79.899 Other long term (current) drug therapy
CPT/HCPCS: 74177; 80053; 85025; 99284-25; Q9967

== ENCOUNTER 2019-11-12 10:42 | Emergency (ER) | payer MEDICARE, OTHER ==
[~2019-11-12] VITALS: Ht 172.7 cm; Wt 77.1 kg
--- OUTSIDE RECORDS SUMMARY | ~2019-11-12 | XMS | Clinical Summary ---
Demographics + + + | Address | [address] | | | [place] [address] | + + + | Home Phone | | + + + | Preferred Language | Unknown | + + + | Marital Status | Single | + + + | Rastafari Affiliation | Unknown | + + + | Race | Unknown | + + + | Ethnic Group | Unknown | + + + Author + + + | Author | [facility] | | | and [place] | + + + | Organization | [facility] | | | [...] [place] | | | | | [address] | | + + + + + Care Team Providers + +------+ + | Care Vtc Technician Name | Role | Phone | + [...] +--------+ +---------+--------+ | MEDICARE | MEDICA | [id number] | 09/18/19 | [phone] | | Medica | | | RE | | 06-Pre | 5 | | re | | | PART A | | sent | | | | | | AND B | | | | | | + +--------+ +--------+ +---------+--------+ | [employer] | MODA | [id number] | 09/21/19 | [phone] | | Medica [...] | | [address] (Home) | [place] [address] | + +--------+ +--------+ + + Advance Directives + + + + + | Type | Date Recorded | Patient | Explanation | | | | Physical Therapy Nurse | | + + + + + | Power of | | | | | Supervisor Reactor Fueling | | | | + + + [...]
--- OUTSIDE RECORDS SUMMARY | ~2019-11-12 | XMS | Encounter Summary ---
Demographics + + + | Address | [address] | | | [place] [address] | + + + | Home Phone | | + + + | Preferred Language | Unknown | + + + | Marital Status | Single | + + + | Baptist Affiliation | Unknown | + + + | Race | Unknown | + + + | Ethnic Group | Unknown | + + + Author + + + | Author | [facility] | | | and [place] | + + + | Organization | [facility] | | | and [place] | + + + | Address | Unknown | + + + | Phone | Unavailable | + + + Support + + + + + | Name | Relationship | Address | Phone | + + + + + | Shonna Syed | ECON | [address] | | | | | [place] | | | | | [address] | | + + + + + Care Team Providers + +------+ + | Care Soft Shoe Dancer Name | Role | Phone | + +------+ + | Leonardo Abdi MD | PCP | | + +------+ + Encounter Details +--------+ + + + + | Date | Type | Department | Care Team | Description | +--------+ + + + + | 09/29/ | Imaging | [facility] | Provider, | Canceled (OTHER) | | 2019 | Exam | [facility] | MD [address] | | | | | IMAGING [address] | [address] | | | | | [address] [place] | [place] [address] | | | | | [place] [address] | | | | | | [phone] | | | +--------+ + + + + Social History + +-------+ [...] + + documented as of this encounter Functional Status + + + [...]
--- OUTSIDE RECORDS SUMMARY | ~2019-11-12 | XMS | Encounter Summary ---
Demographics + + + | Address | [address] | | | [place] [address] | + + + | Home Phone | | + + + | Preferred Language | Unknown | + + + | Marital Status | Single | + + + | Yarsani Affiliation | Unknown | + + + [...] [place] | | | | | [address] | | + + + + + Care Team Providers + +------+ + | Care Industrial Garage Servicer Name | Role | Phone | + [...] | | | ONCOLOGY CLINIC [address] | [facility] | | | | | [facility] | [place] [address] | | | | | [place] [address] | [phone] | | | | | [phone] | | | +--------+--------+ + + + [...]
--- OUTSIDE RECORDS SUMMARY | ~2019-11-12 | XMS | Encounter Summary ---
Demographics + + + | Address | [address] | | | [place] [address] | + + + | Home Phone | | + + + | Preferred Language | Unknown | + + + | Marital Status | Single | + + + | Zoroastrian Affiliation | Unknown | + + + | Race | Unknown | + + + | Ethnic Group | Unknown | + + + Author + + + | Author | [facility] | | | and [place] | + + + | Organization | [facility] | | [...] [place] | | | | | [address] | | + + + + + Care Team Providers + +------+ + | Care Tax Map Technician Name | Role | Phone | [...] | | | | | | | GA EXC | | | | | | | PAROTD,LAT | | | | | | | LOBE,DISSECT | | | | | | | 5TH NERV | | | | | | | GA EXC SKIN | | | | | [...] | | | | | | right yarsanism | | | | | | | lesion | | | +--------+--------+ + + + + Encounter Details +--------+ + + + + | Date | Type | Department | Care Team | Description | +--------+ + + + + | 09/21/ | Anesthesia | [facility] | Jimy Viramontes MD | | | 2019 | Event | [facility] | [address] | | | | | [address] | [place] | | | | | [place] | [address] | | | | | [address] | | | | | | [phone] | | | +--------+ + + + + Anesthesia Record + + + + + | Procedure Name | Responsible | Anesthesia Start | Anesthesia Stop Time | | | Anesthesiologist | Time | | + + + + + | Right superficial | Jimy Viramontes MD | 09/21/18 0831 | 09/21/18 1022 | | parotidectomy with | | | | | facial nerve | | | | | dissection, excision | | | | | right yarsanism lesion | | | | | (Right Neck) | | | | + + + + + +----+---+ + + | Da | T | Event | Comment | | te | i | | | | | m | | | | | e | | | +----+---+ + + | 06 | 0 | | | | /0 | 8 | | | | 5/ | 2 | | | | 20 | 7 | | | | 19 | | | | +----+---+ + + | | 0 | An Checkout | Pre-use anesthesia machine/equipment checkout. | | | 8 | | | | | 3 | | | | | 1 | | | +----+---+ + + | | 0 | An Start | Reassessment prior to anesthesia induction/procedure. | | | 8 | | | | | 3 | | | | | 1 | | | +----+---+ + + | | 0 | Antibiotic | | | | 8 | Given | | | | 3 | | | | | 1 | | | +----+---+ + + | | 0 | Preoxygenat | | | | 8 | ed | | | | 3 | | | | | 4 | | | +----+---+ + + | | 0 | An | | | | 8 | Induction | | | | 3 | | | | | 6 | | | +----+---+ + + | | 0 | An | | | | 8 | Intubation | | | | 3 | | | | | 7 | | | +----+---+ + + | | 0 | [place] | | | | 8 | 43-degrees | | | | 5 | | | | | 1 | | | +----+---+ + + | | 0 | First | | | | 8 | Inc/Proc St | | | | 5 | | | | | 3 | | | +----+---+ + + | | 1 | [place] off | | | | 0 | | | | | 1 | | | | | 3 | | | +----+---+ + + | | 1 | Breathing | | | | 0 | Spontaneous | | | | 1 | ly | | | | 4 | | | +----+---+ + + | | 1 | Oropharynx | | | | 0 | Suctioned | | | | 1 | | | | | 7 | | | +----+---+ + + | | 1 | Moving | | | | 0 | Purposefull | | | | 1 | y | | | | 7 | | | +----+---+ + + | | 1 | Extubated | | | | 0 | Awake | | | | 1 | | | | | 7 | | | +----+---+ + + | | 1 | an stop | | | | 0 | data | | | | 1 | | | | | 7 | | | +----+---+ + + | | 1 | An Stop | Patient handed off to recovery nurse. | | | 2 | | | | | 2 | | | +----+---+ + + +------+ | Meds | +------+ + + + | Name | Total | + + + | fentaNYL injection (2 mL) | 100 mcg | + + + | propofol (DIPRIVAN) injection | 150 mg | | (bolus) (20 mL) | | + + + | phenylephrine (Injection) | 400 mcg | + + + | dexamethasone | 10 mg | + + + | ondansetron | 4 mg | + + + | ceFAZolin (ANCEF, KEFZOL) 100 | 2 g | | mg/mL IV syringe 2 g | | + + + | lidocaine 1% | 50 mg | + + + | Phenylephrine 10mg/mL VIAL | 396 mcg | + + + | cisatracurium | 1 mg | + + + | succinylcholine (ANECTINE) | 100 mg | | injection | | + + + | lactated ringers (LR) infusion | 1,400 mL | + + + + + | Name | + + | N2O Flow Rate (L/Min) | + + | O2 Flow Rate (L/Min) | + + | Insp O2 | + + | Exp SEV | + + | Air Flow Rate (L/Min) | + + + + | No blood administrations on file. | + + +--------+ + + + | Type | Details | Placement | Removal | +--------+ + + + | Periph | 09/21/18; 0752; Right; Mid; | 09/21/18 0752 by | 09/22/18929 by | | carol | Forearm; mofx-hpu-nhfvhr catheter | Meron Bryan RN | Radha Montanez, | | IV | system; 18 gauge, 1 2 in | | RN | | | length; distraction, topical | | | | | anesthetic spray applied, | | | | | tolerated well; 09/22/18; 0930 | | | +--------+ + + + | Airway | Placement Date: 09/21/18; | 09/21/18836 by | 09/21/18 1017 by | | | Placement Time: 08 (created via | Jimy Viramontes MD | Jimy Viramontes MD | | | procedure documentation); Airway | | | | | Grade: 2b; External Maneuvers: | | | | | CP; Successful Technique: Mac; | | | | | Laryngoscope Blade Size: 3; | | | | | Attempts: 1; Airway Type: | | | | | endotracheal; Size: 6.5; Airway | | | | | Tube Secured At: 23; Trauma: | | | | | none; Placement Check: exhaled | | | | | CO2 detection device, bilateral | | | | | chest rise; Removal Date: | | | | | 09/21/18; Removal Time: 1017 | | | +--------+ + + + | Drain/ | 09/21/18; 0938; #1; Right; neck; | 09/21/18937 by | 09/22/1830 by | | Device | collapsible closed device; 7mm; | Gladis Barrera RN | Radha Montanez, | | Site | 09/22/18; 929 | | RN | +--------+ + + + | Wound | 09/21/18; 939; Incision; Right; | 09/21/18939 by | 09/22/18954 by | | | neck; Healing; 09/22/18954 | Gladis Barrera RN | Radha Montanez, | | | | | RN | +--------+ + + + documented in this encounter Social History + +-------+ +--------+------+ | Tobacco [...] + + documented as of this encounter OR Notes Anesthesia Postprocedure Evaluation - Jimy Viramontes MD - 09/21/2018 2:14 PM PDT ANESTHESIA POSTANESTHESIA EVALUATION Rk Kee 77 y.o. male 1940 [id number] Procedure(s) Right superficial parotidectomy with facial nerve dissection, excision right yarsanism lesion (Right Neck) Cooperates? Yes Mental Status Performs simple tasks. Respiratory Satisfactory - Airway patent (self maintained). Cardiovascular Satisfactory - Blood pressure and heart rate acceptable Temperature Satisfactory Pain Satisfactory N/V Control Satisfactory Hydration Satisfactory - No signs of dehydration Complications None apparent Vitals Value Taken Time Temp 36.8 C (98.2 F) 09/21/2018 10:20 Pulse 75 09/21/2018 11:25 Resp 13 09/21/2018 11:25 BP 129/82 09/21/2018 11:20 Arterial Line BP Arterial Line BP 2 SpO2 97 % 09/21/2018 11:25 Electronically signed by Jimy Viramontes MD 09/21/2018 14:14 [facility] Jimy Viramontes MD at 2018 2:14 PM PDTAnesthesia Procedure Notes - Jimy Viramontes MD - 09/21/2018 8:54 AM PDTAss ociated Order(s): AirwayAnesthesia Airway Placement 09/21/2018 8:37 Preprocedure check: patient identified, oxygen, airway assessed, airway equipment checked, suction and patient reassessment prior to induction Rapid Sequence Induction: no External maneuver: cricoid pressure Successful technique: Mac Laryngoscope blade size: 3 Airway grade: 2b (Only posterior extremity of glottis seen or only arytenoid cartilages) Attempts: 1 Airway type: endotracheal Size: 6.5 Cuffed: cuffed Tube depth: 23 cm Tube secured with: adhesive tape Trauma: none Tube placement verification: bilateral chest rise and carbon dioxide detection Performing provider: Jimy Viramontes MD Please see intraoperative grid for any additional medication documentation. nesthesia Preprocedure Evaluation - Jimy Viramontes MD - 09/21/2018 8:17 AM PDTFormatting of this note might be di fferent from the original. ANESTHESIA PREANESTHESIA EVALUATION Rk Kee 77 y.o. male 1940 [id number] Procedure(s): Right superficial parotidectomy with facial nerve dissection, excision right yarsanism lesion (Right Neck) Medical,anesthesia, drug, allergy histories reviewed, NPO status verified. . Review of Systems / Med History Anesthesia History No anesthesia complications except where noted below. Cardiovascular Negative except where noted below. 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 . Pulmonary Negative except where noted below. (-) tobacco use. Cancer (+) prostate cancer. Physical Exam Airway MP III, TM >3 FB, Mouth opening >2 FB. Neck: full ROM, extends >30 degrees. Jaw protru jose l normal. Facial hair present: No Dental Grossly normal except where noted below.; CV Rhythm regular. Rate normal. (-) murmur. Pulm Clear to auscultation bilaterally. Neuro Grossly normal. Anesthesia Plan ASA 3 (due to metastatic prostate CA) Type: General. Induction: Intravenous. Potential problems: None anticipated. Monitors: Standard ASA monitors. Consent statement:Anesthetic plan, alternatives, risks and benefits discussed with patient. Risks discussed included (but were not limited to): backache, respiratory events, nausea, h eart problems, pain,. Consenting person understands and agrees to proceed . PARQ. Electronically Signed by: Jimy Viramontes MD ESig date/time: 09/21/2018 8:17 documented in this enco unter Plan of Treatment Not on filedocumented as of this encounter Procedures + +--------+ + + + | Procedure Name | Priori | Date/Time | Associated Diagnosis | Comments | | | ty | | | | + +--------+ + + + | ANE AIRWAY NOTE | Routin | 09/21/2018 | | Results for this | | | e | 8:54 AM | | procedure are in the | | | | PDT | | results section. | + +--------+ + + + documented in this encounter Results Airway (09/21/2018 8:54 AM PDT) + + + | Narrative | Performed At | + + + | Jimy Viramontes MD 09/21/2018 8:55 Anesthesia Airway Placement | | | 09/21/2018 8:37 Preprocedure check: patient identified, oxygen, | | | airway assessed, airway equipment checked, suction and patient | | | reassessment prior to induction Rapid Sequence Induction: no | | | External maneuver: cricoid pressure Successful technique: Mac | | | Laryngoscope blade size: 3 Airway grade: 2b (Only posterior | | | extremity of glottis seen or only arytenoid cartilages) Attempts: 1 | | | Airway type: endotracheal Size: 6.5 Cuffed: cuffed Tube depth: 23 | | | cm Tube secured with: adhesive tape Trauma: none Tube placement | | | verification: bilateral chest rise and carbon dioxide detection | | | Performing provider: Jimy Viramontes MD Please see | | | intraoperative grid for any additional medication documentation. | | + + + + + | Procedure Note | + + | Jiym Viramontes MD - 09/21/2018 8:54 AM PDT Anesthesia Airway Placement09/21/2018 | | 8:37Preprocedure check: patient identified, oxygen, airway assessed, airway equipment | | checked, suction and patient reassessment prior to inductionRapid Sequence Induction: | | noExternal maneuver: cricoid pressureSuccessful technique: MacLaryngoscope blade size: | | 3 Airway grade: 2b (Only posterior extremity of glottis seen or only arytenoid | | cartilages)Attempts: 1Airway type: endotrachealSize: 6.5Cuffed: cuffedTube depth: 23 | | cmTube secured with: adhesive tapeTrauma: noneTube placement verification: bilateral | | chest rise and carbon dioxide detectionPerforming provider: CASE Andrewslease see | | intraoperative grid for any additional medication documentation. | |Attempts: 1 | |Airway type: endotracheal | |Size: 6.5 | |Cuffed: cuffed | |Tube depth: 23 cm | |Tube secured with: adhesive tape | |Trauma: none | |Tube placement verification: bilateral chest rise and carbon dioxide detection | |Performing provider: Jimy Viramontes MD | | | | | | | |Please see intraoperative grid for any additional medication documentation. | + + documented in this encounter Visit Diagnoses Not on filedocumented in this encounter Administered Medications + +--------+ +------+------+------+ | Medication Order | MAR | Action | Dose | Rate | Site | | | Action | Date | | | | + +--------+ +------+------+------+ | ceFAZolin (ANCEF, KEFZOL) 100 | Given | 09/21/ | 2 g | | | | mg/mL IV syringe 2 g 2 g, | | 19 8:31 | | | | | Intravenous, Administer over 30 | | AM PDT | | | | | Minutes, Prior to Incision, | | | | | | | Starting 09/21/18 at 0828, For | | | | | | | 1 dose, Pre-op, Indications: | | | | | | | Surgical Prophylaxis | | | | | | + +--------+ +------+------+------+ +---+---+ | | | +---+---+ + +-------+ +------+---+---+ | cisatracurium (PF) (NIMBEX) | Given | 09/22/19 | 1 mg | | | | injection Intravenous, PRN, | | 19 8:33 | | | | | Starting Wed09/21/18 at 0833, | | AM PDT | | | | | Anesthesia Intra-op | | | | | | + +-------+ +------+---+---+ +---+---+ | | | +---+---+ + +-------+ +-------+---+---+ | dexamethasone (PF) 10 mg/mL | Given | 09/22/19 | 10 mg | | | | injection Intravenous, PRN, | | 19 8:53 | | | | | Starting Wed09/21/18 at 0853, | | AM PDT | | | | | Anesthesia Intra-op | | | | | | + +-------+ +-------+---+---+ +---+---+ | | | +---+---+ + +-------+ +---------+---+---+ | fentaNYL (PF) injection | Given | 09/22/19 | 100 mcg | | | | Intravenous, PRN, Starting Wed | | 19 8:51 | | | | | 09/21/18 at 0851, Anesthesia | | AM PDT | | | | | Intra-op | | | | | | + +-------+ +---------+---+---+ +---+---+ | | | +---+---+ [...] | | +---+---+ + +-------+ +-------+---+---+ | lidocaine (PF) 1% injection | Given | 09/22/19 | 50 mg | | | | Infiltration, PRN, Starting Wed | | 19 8:34 | | | | | 09/21/18 at 0834, Anesthesia | | AM PDT | | | | | Intra-op | | | | | | + +-------+ +-------+---+---+ +---+---+ | | | +---+---+ + +-------+ +------+---+---+ | ondansetron (ZOFRAN) injection | Given | 09/22/19 | 4 mg | | | | Intravenous, PRN, Starting Wed | | 19 8:53 | | | | | 09/21/18 at 0853, Anesthesia | | AM PDT | | | | | Intra-op | | | | | | + +-------+ +------+---+---+ +---+---+ | | | +---+---+ + +-------+ +---------+---+---+ | phenylephrine (BELGICA-SYNEPHRINE) | Given | 09/22/19 | 200 mcg | | | | 100 mcg/mL injection | | 19 9:41 | | | | | Intravenous, PRN, Starting Wed | | AM PDT | | | | | 09/21/18 at 0856, Anesthesia | | | | | | | Intra-op | | | | | | + +-------+ +---------+---+---+ +-------+ +---------+---+---+ | Given | 09/22/19 | 200 mcg | | | | | 19 8:56 | | | | | | AM PDT | | | | +-------+ +---------+---+---+ +---+---+ | | | +---+---+ + +---------+ + +-------+---+ | phenylephrine (BELGICA-SYNEPHRINE, | New Bag | 09/22/19 | 0.2 | 0.1 | | | VAZCULEP) 10 mg/mL injection | | 19 9:04 | mcg/kg/m | mL/hr | | | Intravenous, CONTINUOUS PRN, | | AM PDT | in | | | | Starting Wed09/21/18 at 0904, | | | | | | | Anesthesia Intra-op | | | | | | + +---------+ + +-------+---+ +---+---+ | | | +---+---+ + +-------+ +--------+---+---+ | propofol (DIPRIVAN) injection | Given | 09/22/19 | 150 mg | | | | Intravenous, PRN, Starting Wed | | 19 8:36 | | | | | 09/21/18 at 0836, Anesthesia | | AM PDT | | | | | Intra-op | | | | | | + +-------+ +--------+---+---+ +---+---+ | | | +---+---+ + +-------+ +--------+---+---+ | succinylcholine (ANECTINE) | Given | 09/22/19 | 100 mg | | | | injection PRN, Starting Wed | | 19 8:36 | | | | | 09/21/18 at 0836, Anesthesia | | AM PDT | | | | | Intra-op | | | | | | + +-------+ +--------+---+---+ +---+---+ | | | +---+---+ documented in this encounter"
--- OUTSIDE RECORDS SUMMARY | ~2019-11-12 | XMS | Encounter Summary ---
Demographics + + + | Address | [address] | | | [place] [address] | + + + | Home Phone | | + + + | Preferred Language | Unknown | + + + | Marital Status | Single | + + + | Hindu Affiliation | Unknown | + + + | Race | Unknown | + + + | Ethnic Group | Unknown | + + + Author + + + | Author | [facility] | | | and [place] | + + + | Organization | [facility] | | | [...] [place] | | | | | [address] | | + + + + + Care Team Providers + +------+ + | Care Tobacco Drummer Name | Role | Phone | + [...] | | | | | | | LA EXC | | | | | | | PAROTD,LAT | | | | | | | LOBE,DISSECT | | | | | | | 5TH NERV | | | | | | | LA EXC SKIN | | | | | [...] | | | | | | right latter-day | | | | | | | [...] with | | | | [address] | [place] [address] [place], | facial nerve | | | | [place], [place] | [place] [address] | dissection, excision | | | | [phone] | [phone] | right latter-day lesion | | | | [phone] | | | +--------+---------+ + + + [...] has mild/mod pain to surgical site, prn [place] 1 tab given w/ good relief noted. [...] Gruber MD - 09/21/2018 10:37 AM PDT [facility] [address] [facility] [address] OPERATIVE REPORT WESLEY GRUBER MD Patient: RK EARL Admitting: WESLEY Matta ALLYN MR #: [id number] LOC: PT TYPE: Adm Date: 09/21/2018 : 1940 DATE: 09/21/2018 PREOPERATIVE DIAGNOSES: 1. Right parotid mass. 2. Right latter-day skin lesion. POSTOPERATIVE DIAGNOSES: 1. Right parotid mass. 2. Right latter-day skin lesion. PROCEDURE: 1. Right superficial parotidectomy with facial nerve dissection. 2. Wide excision of a right facial lesion. SURGEON: Wesley Gruber MD CHILLER TECHNICIAN: Gabriel Ortiz MD. ANESTHESIA: General orotracheal, Jimy [...] have a pigmented lesion on the right latter-day, measures about 15 mm, very suspicious for [...] place with a 3-0 silk. The right latter-day lesion was then addressed. It was a [...] then awakened, extubated and transported [facility] room in good condition. COMPLICATIONS: None. BLOOD LOSS: About 50 mL. SPECIMEN: To pathology: 1. Right parotid superficial lobe. 2. Right latter-day lesion. DRAIN: Flat Julian. WESLEY GRUBER MD Dictated by WESLEY GRUBER MD 09/21/2018 10:37:29 Transcribed on 09/21/2018 13:04:49 by in job# [id number] Confirmation #: [id number] cc: ELENA ABDI MD rief Op Note - Wesley Gruber MD - 09/21/2018 10:25 AM PDTFormatting of this note mo ht be different from the original. BRIEF OPERATIVE NOTE [facility] Pt. Name/Age/: Rk Bourne y.o. 1940 Med. Record Number: [id number] Date of admission: 09/21/2018 Date of Operation/Procedure: 09/21/2018 Preoperative Diagnosis: * No pre-op diagnosis entered * Postoperative Diagnosis: * Neck mass [R22.1] Surgeon: Wesley Gruber MD Blueprint Duplicator: None Anesthesia Provider(s): Anesthesiologist: Jimy Viramontes MD Anesthesia Type: General Procedure(s): Right superficial parotidectomy with facial nerve dissection, excision right latter-day lesion Operative Findings: Wound Closure: Primary closure [...] MD 09/21 0930 Pathology B : Right latter-day lesion Tissue SPECIMEN TO PATHOLOGY Wesley Gruber [...] Wesley Gruber MD - 09/21/2018 8:12 AM PDTPromerged with [facility] SURGICAL INTERIM HISTORY [...] signed by: Wesley Gruber, 09/21/2018 8:[address] [facility] documented in this e ncounter Plan of [...] A RIGHT PAROTID GLAND SPECIMEN(S): B RIGHT L[place] | [place] PATH[facility] | | SPECIMEN SOURCE: A. RIGHT PAROTID GLAND B. RIGHT L[place]HERAN CLINICAL | INCYTE | | HISTORY: R22.1 (neck mass). Right superficial parotidectomy with | | | facial nerve dissection, excision right latter-day mass. FINAL | | | PATHOLOGIC DIAGNOSIS: A. 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 - Focal chronic stromal | | | inflammation. - Incidental reactive lymphoid tissue (lymph nodes). | | | B. Skin, right latter-day, excision: - Malignant melanoma, arising | | | in melanoma in situ. - Procedure: Excision. - | | | Tumor site: Right latter-day. - Clinical size: Not available. | | [...] on 09-23-18 at 15:40. As part of [facility]' | | | Quality Improvement Program, this case was reviewed by another member | | | of our pathology staff. JVR:[facility]:C1NR MICROSCOPIC | | | EXAMINATION: Histologic sections [...] concern, | | | supporting the diagnosis. JVR:[facility] GROSS DESCRIPTION: Two | | | specimens [...] | | | discrete lesions are identified. Radiotelegrapher sections are | | | submitted as follows: (A1) Lesion to blue inked resection margin | | | (A2) Lesion to uninvolved parenchyma (A3) Lesion (A4-A6) | | | Uninvolved parenchyma B. The specimen, labeled "DB, right latter-day | | | lesion," is received in [...] performance | | | characteristics determined by [facility]. It has not been | | | cleared or approved by the U.S. Food and Drug Administration. The | | | FDA has determined that such clearance or approval is not necessary. | | | This test is used for clinical purposes. It should not be regarded | | | as investigational or for research. [facility] is certified | | | under the Clinical Laboratory Improvement Amendments of 1988 (CLIA) | | | as qualified to perform high complexity clinical laboratory testing. | | | PERFORMING LABORATORY: The technical component was performed by | | | [facility], [address] [place] [id number] (Medical | | | Director: Bella Mendoza MD; CLIA# [id number]). Professional | | | interpretation was performed by [facility] [place] | | | [facility], [address] [place] [address] | | | [id number] (Chopper Operator: Ivan Velazquez M.D.). Diagnostician: | | | [...] | | | | | | use [place] 10/325 if ordered. If | | | [...] | | | | | | | [id number] use of at least | | | [...]
--- OUTSIDE RECORDS SUMMARY | ~2019-11-12 | XMS | Encounter Summary ---
Demographics + + + | Address | [address] | | | [place] [address] | + + + | Home Phone | | + + + | Preferred Language | Unknown | + + + | Marital Status | Single | + + + | Lutheran Affiliation | Unknown | + + + | Race | Unknown | + + + | Ethnic Group | Unknown | + + + Author + + + | Author | [facility] | | | and [place] | + + + | Organization | [facility] | | [...] [place] | | | | | [address] | | + + + + + Care Team Providers + +------+ + | Care Flyer Repairer Name | Role | Phone | + [...] | | | | | | | FL EXC | | | | | | | PAROTD,LAT | | | | | | | LOBE,DISSECT | | | | | | | 5TH NERV | | | | | | | FL EXC SKIN | | | | | [...] | | | | | | right catholic | | | | | | | lesion | | | +--------+--------+ + + + + Encounter Details +--------+ + + + + | Date | Type | Department | Care Team | Description | +--------+ + + + + | 06/05/ | Hospital | [facility] | Wesley Gruber Sigrid, | Neoplasm of | | 2019 - | Encounter | [facility] | [address] | uncertain behavior | | | | [address] [place] | [address] [place], | of parotid gland | | 09/22/ | | [place] [address] | [place] [address] | | | 2019 | | [phone] | [phone] | | | | | | | [...] has mild/mod pain to surgical site, prn [place] 1 tab given w/ good relief noted. [...] Gruber MD - 09/21/2018 10:[address] [facility] [address] [facility] [address] OPERATIVE REPORT WESLEY GRUBER MD Patient: KR EARL Admitting: WESLEY Matta ALLYN MR #: [id number] LOC: PT TYPE: Adm Date: 09/21/2018 : 1940 DATE: 09/21/2018 PREOPERATIVE DIAGNOSES: 1. Right parotid mass. 2. Right catholic skin lesion. POSTOPERATIVE DIAGNOSES: 1. Right parotid mass. 2. Right catholic skin lesion. PROCEDURE: 1. Right superficial parotidectomy with facial nerve dissection. 2. Wide excision of a right facial lesion. SURGEON: Wesley Gruber MD DIRECTOR OF PSYCHIATRY: Gabriel Ortiz MD. ANESTHESIA: General orotracheal, Jimy [...] have a pigmented lesion on the right catholic, measures about 15 mm, very suspicious for [...] place with a 3-0 silk. The right catholic lesion was then addressed. It was a [...] then awakened, extubated and transported to the [facility] room in good condition. COMPLICATIONS: None. BLOOD LOSS: About 50 mL. SPECIMEN: To pathology: 1. Right parotid superficial lobe. 2. Right catholic lesion. DRAIN: Flat Julian. WESLEY GRUBER MD Dictated by WESLEY GRUBER MD 09/21/2018 10:37:29 Transcribed on 09/21/2018 13:04:49 by in job# [id number] Confirmation #: [id number] cc: ELENA ABDI MD rief Op Note - Wesley Gruber MD - 09/21/2018 10:25 AM PDTFormatting of this note mo ht be different from the original. BRIEF OPERATIVE NOTE [facility] Pt. Name/Age/: Rk Bour[age] y.o. 1940 Med. Record Number: [id number] Date of admission: 09/21/2018 Date of Operation/Procedure: 09/21/2018 Preoperative Diagnosis: * No pre-op diagnosis entered * Postoperative Diagnosis: * Neck mass [R22.1] Surgeon: Wesley Gruber MD Departmental Buyer: None Anesthesia Provider(s): Anesthesiologist: Jimy Viramontes MD Anesthesia Type: General Procedure(s): Right superficial parotidectomy with facial nerve dissection, excision right catholic lesion Operative Findings: Wound Closure: Primary closure [...] MD 09/21 0930 Pathology B : Right catholic lesion Tissue SPECIMEN TO PATHOLOGY Wesley Gruber [...] Wesley Gruber MD - 09/21/2018 8:12 [facility] [...] signed by: Wesley Gruber, 09/21/2018 8:12 [facility] documented in this e ncounter Plan [...] A RIGHT PAROTID GLAND SPECIMEN(S): B RIGHT PROTESTANT | [place] [facility] | | SPECIMEN SOURCE: A. RIGHT PAROTID GLAND B. RIGHT PROTESTANT CLINICAL | INCYTE | | HISTORY: R22.1 (neck mass). Right superficial parotidectomy with | | | facial nerve dissection, excision right catholic mass. FINAL | | | PATHOLOGIC DIAGNOSIS: A. 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 - Focal chronic stromal | | | inflammation. - Incidental reactive lymphoid tissue (lymph nodes). | | | B. Skin, right catholic, excision: - Malignant melanoma, arising | | | in melanoma in situ. - Procedure: Excision. - | | | Tumor site: Right catholic. - Clinical size: Not available. | | [...] on 09-23-18 at 15:40. As part of [facility]' | | | Quality Improvement Program, this case was reviewed by another member | | | of our pathology staff. JVR:[facility]:[id number] MICROSCOPIC | | | EXAMINATION: Histologic sections [...] concern, | | | supporting the diagnosis. JVR:[facility] GROSS DESCRIPTION: Two | | | specimens [...] | | | discrete lesions are identified. Licensed Professional Counselor sections are | | | submitted as follows: (A1) Lesion to blue inked resection margin | | | (A2) Lesion to uninvolved parenchyma (A3) Lesion (A4-A6) | | | Uninvolved parenchyma B. The specimen, labeled "DB, right catholic | | | lesion," is received in [...] performance | | | characteristics determined by [facility]. It has not been | | | cleared or approved by the U.S. Food and Drug Administration. The | | | FDA has determined that such clearance or approval is not necessary. | | | This test is used for clinical purposes. It should not be regarded | | | as investigational or for research. [facility] is certified | | | under the Clinical Laboratory Improvement Amendments of 1988 (CLIA) | | | as qualified to perform high complexity clinical laboratory testing. | | | PERFORMING LABORATORY: The technical component was performed by | | | [facility], [address] [place] [id number] (Medical | | | Director: Bella Mendoza MD; CLIA# [id number]). Professional | | | interpretation was performed by [facility], [place] | | | [facility], [address] [place] [address] | | | [id number] (Director Of [employer]: Ivan Velazquez M.D.). Diagnostician: | | | [...] | | | | | | use [place] 10/325 if ordered. If | | | [...] | | | | | | | [id number] use of at least | | | [...]
--- OUTSIDE RECORDS SUMMARY | ~2019-11-12 | XMS | Encounter Summary ---
Demographics + + + | Address | [address] | | | [place] [address] | + + + | Home Phone | | + + + | Preferred Language | Unknown | + + + | Marital Status | Single | + + + | Congregational Affiliation | Unknown | + + + [...] [place] | | | | | [address] | | + + + + + Care Team Providers + +------+ + | Care Electronic Organ Technician Name | Role | Phone | [...] | | | [address] [place] | [place] [address] | | | | | [place] [address] | | | | | | [phone] | | | +--------+ + + + [...]
--- OUTSIDE RECORDS SUMMARY | ~2019-11-12 | XMS | Encounter Summary ---
Demographics + + + | Address | [address] | | | [place] [address] | + + + | Home Phone | | + + + | Preferred Language | Unknown | + + + | Marital Status | Single | + + + | Sikh Affiliation | Unknown | + + + [...] [place] | | | | | [address] | | + + + + + Care Team Providers + +------+ + | Care Weighing Station Operator Name | Role | Phone | [...] + + | 01/02/ | Refill | [facility] | Rashard Rivera, | Medication Refill | | 2015 | | [facility] | [address] | | | | | [facility] | [facility] [place], | | | | | [address] | [place] [address] | | | | | [place] [address] | [phone] | | | | | [phone] | | | +--------+--------+ + + + [...]
--- OUTSIDE RECORDS SUMMARY | 2019-11-12 10:44 | XMS ---
PreManage Notification: YAW EARL Security Chief Lock Operator Events No recent Security Events currently on file CRITERIA MET - Group Notification - 6 ED Visits in 6 Months - [facility] - Has Care Guidelines - [facility] - 2 Visits in 30 Days CARE PROVIDERS JUAN DISLA Nurse Practitioner: 12/15/2017-Current PHONE: [phone] Alisha Cain Concrete Stone Finishing Supervisor/Long Goods Drier 05/20/2019-Current PHONE: [phone] Jose has no Care Guidelines for this patient. Care History Medical/Surgical 10/09/2019 [facility] Patient stated that he had fallen and could not get up.\T\nbsp; It scared him to the point of having to call EMS to get him to the ED.\T\nbsp; He will consider calling the Clinic to book a follow up with Juan Disla if need be. 08/02/2019 [facility] Patient has scheduled follow up with Juan Disla on 08/11/2019. 06/15/2019 [facility] Spoke with patient regarding use of emergency room and advised of walk in clinic.\T\nbsp; Patient stated he has used the ER and the walk in clinic\T\ nbsp;before and knows how the system works.\T\nbsp; He has appointment with Dr. Arnold next week. ENallely VISIT COUNT (12 MO.) 7 [facility] TOTAL 7 NOTE: Visits indicate total known visits. ED/UCC VISIT TRACKING (12 MO.) 11/12/2019 10:43 [facility] [place] TYPE: Emergency COMPLAINT: - WEAKNESS 11/09/2019 14:08 [facility] [place] [facility] Garcia [place] TYPE: Emergency COMPLAINT: - CONSTIPATION 10/31/2019 12:43 [facility] [place] TYPE: Emergency COMPLAINT: - WEAKNESS DIAGNOSES: - Weakness - Essential (primary) hypertension - Other custodial (current) drug therapy 10/11/2019 04:08 [facility] [place] TYPE: Emergency COMPLAINT: - FALL DIAGNOSES: - Fall on same level, unspecified, initial encounter - Other custodial (current) drug therapy - Encounter for examination and observation following other acc - Essential (primary) hypertension 2019 07:45 [facility] [place] TYPE: Emergency COMPLAINT: - FALL, KNEE PAIN DIAGNOSES: - Abrasion, right knee, initial encounter - Pain in right knee - Essential (primary) hypertension - Other rodent exterminator (current) drug therapy - Fall from bed, initial encounter 08/01/2019 12:28 [facility] [place] TYPE: Emergency COMPLAINT: - FALL DIAGNOSES: - Essential (primary) hypertension - Other custodial (current) drug therapy - Weakness - Malignant neoplasm of prostate 06/14/2019 18:42 [facility] [place] TYPE: Emergency COMPLAINT: - BACK PAIN DIAGNOSES: - Secondary malignant neoplasm of bone - Diarrhea, unspecified - Other rodent exterminator (current) drug therapy - Malignant neoplasm of prostate - Low back pain INPATIENT VISIT TRACKING (12 MO.) No inpatient visits to display in this time frame [email or web address]
== END 2019-11-12 12:55 | disposition home or self-care (01) ==
LOC: ED 10:42
DX: R53.1 Weakness (principal); I10 Essential (primary) hypertension; Z79.899 Other long term (current) drug therapy
CPT/HCPCS: 99284